=== PATIENT | female | born 1950 | race Caucasian/White ===

== ENCOUNTER 2021-09-06 11:07 | Day surgery (SDC) | payer MEDICARE, MEDICAID ==
[~2021-09-06] VITALS: Ht 154.9 cm; Wt 77.1 kg
[~2021-09-06 11:07] MED LIST: ASPI81TA52 PO; ATOR40TA72 PO; LINE600T14 PO; METO-384 PO
[2021-09-06] MEDS ORDERED: ceFAZolin 2gm in dextrose, iso 50 ML IV ONE (11:35)
[2021-09-06] MEDS ORDERED: normal saline 1000ml 1,000 ML IV PRN (11:35)
[2021-09-06] MEDS ORDERED: ceFAZolin inj. 2,000 MG in normal saline soln 50 ML IV ONE (11:35)
[2021-09-06 11:43] VITALS: BP 169/70
[2021-09-06] MEDS ORDERED: LIDOcaine 1%/PF 5ML 10 MG/ML VIAL ONE (12:01)
[2021-09-06] MEDS ORDERED: iohexol 300 MG/1 ML 50ml polymer ONE (12:01)
[2021-09-06] MEDS ORDERED: hydrALAZINE 20mg/ml inj. IV ONE (12:48)
[2021-09-06 13:17] VITALS: BP 166/71
[2021-09-06 13:33] VITALS: BP 165/74
[2021-09-06 13:45] VITALS: BP 159/72
[2021-09-06 14:00] VITALS: BP 155/70
== END 2021-09-06 14:30 | disposition home or self-care (01) ==
LOC: SSTAY O 11:07
PROVIDERS: ATTEND Radiology Diagnostic Radiology
DX: Z43.6 Encounter for attention to other artificial openings of urinary tract (principal); I10 Essential (primary) hypertension; Z86.73 Personal history of transient ischemic attack (TIA), and cerebral infarction without residual deficits; Z88.1 Allergy status to other antibiotic agents; Z79.899 Other long term (current) drug therapy; Z79.82 Long term (current) use of aspirin; Z88.2 Allergy status to sulfonamides
CPT/HCPCS: 50435; 82948; C1729; C1769; J0360; Q9967; 50387

== ENCOUNTER 2022-02-22 16:49 | Inpatient (IN) | payer MEDICARE, MEDICAID ==
[~2022-02-22] VITALS: Ht 154.9 cm; Wt 77.3 kg
[~2022-02-22 16:49] MED LIST changes: -LINE600T14 PO
[2022-02-22 17:30] LABS: BASOPHILS # (AUTO) 0.1 X10'3 (0-0.2); BASOPHILS % (AUTO) 0.9 % (0-1); EOSINOPHILS # (AUTO) 0.2 X10'3 (0-0.9); EOSINOPHILS % (AUTO) 1.7 % (0-6); HEMATOCRIT 40.5 % (35.0-45.0); HEMOGLOBIN 13.3 g/dl (12.0-16.0); LYMPHOCYTES # (AUTO) 2.2 X10'3 (1.1-4.8); LYMPHOCYTES % (AUTO) 22.9 % (21-51); MEAN CORPUSCULAR HEMOGLOBIN 28.2 PG (27.0-31.0); MEAN CORPUSCULAR HGB CONC 32.8 g/dL (33.0-36.5); MEAN CORPUSCULAR VOLUME 86.1 FL (78-98); MEAN PLATELET VOLUME 7.3 FL (7.4-10.4); MONOCYTES # (AUTO) 0.6 X10'3 (0-0.9); MONOCYTES % (AUTO) 6.8 % (2-12); NEUTROPHILS # (AUTO) 6.4 X10'3 (1.8-7.7); NEUTROPHILS % (AUTO) 67.7 % (42-75); PLATELET COUNT 237 X10'3 (140-440); RED BLOOD COUNT 4.71 X10'6 (4.20-5.60); RED CELL DISTRIBUTION WIDTH 16.2 % (11.5-14.5); WHITE BLOOD COUNT 9.4 X10'3 (4.5-11.0)
[2022-02-22 17:38] LABS: APTT 27 SECONDS (22-32)
[2022-02-22 17:39] LABS: ALANINE AMINOTRANSFERASE 25 U/L (12-78); ALBUMIN 3.1 G/DL (3.4-5.0); ALBUMIN/GLOBULIN RATIO 0.7 (1.1-1.5); ALKALINE PHOSPHATASE 93 IU/L (46-116); ANION GAP 12 (8-16); ASPARTATE AMINO TRANSFERASE 16 U/L (10-37); BILIRUBIN,TOTAL 0.3 MG/DL (0.1-1.0); BLOOD UREA NITROGEN 22 MG/DL (7-18); BUN/CREATININE RATIO 13.6 (6.6-38.0); CALCIUM 9.6 MG/DL (8.5-10.1); CHLORIDE 101 MMOL/L (99-107); CREATININE 1.62 MG/DL (0.40-0.90); GLUCOSE 235 MG/DL (70-104); SODIUM 136 MMOL/L (135-145); TOTAL CARBON DIOXIDE 23.5 MMOL/L (24-32); TOTAL PROTEIN 7.5 G/DL (6.4-8.2); eGFR 31 ML/MIN
--- NOTE | 2022-02-22 19:01 | NUR ---
Pt pink, alert, no acute/resp distress. PIV site c/d/i s complication. Bed in lowest position, wheels locked, family at bedside.
[2022-02-22] MEDS ORDERED: iohexol 350MG/ML 100ml bottle IV ONE (19:29)
--- NOTE | 2022-02-22 20:30 | NUR ---
Pt pink, alert, no acute/resp distress. Bed in lowest position, wheels locked, rail 2/2 up, call kaye in reach. Pt laying right side, able to reposition self PRN. Urinal at bedside. Family at bedside.
[2022-02-22] MEDS ORDERED: vancomycin/NS 1 GM ADD-VANTAGE 250 ML IV ONE (20:40)
[2022-02-22] MEDS ORDERED: potassium Cl 20 mEq SR tablet PO PRN ×2 (20:40)
[2022-02-22] MEDS ORDERED: magnesium 4gm in 100ml NS 100 ML IV PRN (20:40)
[2022-02-22] MEDS ORDERED: cefTRIAXone 1g/NS 100ml IVPB 100 ML IV ONE (20:40)
[2022-02-22] MEDS ORDERED: acetaminophen 325mg tablet PO PRN (20:40)
[2022-02-22] MEDS ORDERED: potassium CL 10mEq/100ml bag 100 ML IV PRN (20:40)
[2022-02-22] MEDS ORDERED: magnesium 2GM in 50ml NS 50 ML IV PRN (20:40)
[2022-02-22] MEDS ORDERED: mag hydrox/Alum hydrox/simeth 30ml oral suspension PO PRN (20:40)
[2022-02-22] MEDS ORDERED: ondansetron/PF 4mg/2ml inj IV PRN (20:40)
[2022-02-22] MEDS ORDERED: VANCOMYCIN 750MG IV in NS 250 ML IV SCH (21:00)
[2022-02-22] MEDS ORDERED: INSU100I31 SQ (21:09)
[2022-02-22] MEDS ORDERED: MESSAGE TO PHARMACY PO ONE (21:50)
[2022-02-22] MEDS ORDERED: DEXTROSE 15 GM of carb/4 tabs (each vial/BOTTLE has 4 tablets) PO PRN ×2 (21:50)
[2022-02-22] MEDS ORDERED: dextrose 50%-water 50ml dispensing syringe IV PRN ×2 (21:50)
[2022-02-22] MEDS ORDERED: glucagon, human recombinant 1mg kit SUBCUT PRN (21:50)
[2022-02-22] MEDS ORDERED: clopidogrel 300mg tablet PO ONE (22:05)
[2022-02-22 22:07] LABS: HEMOGLOBIN A1C 8.5 % (4.5-6.2)
[2022-02-22] MEDS: clopidogrel 75mg tablet PO SCH (22:14)
[2022-02-22] MEDS: VANCOMYCIN 750MG IV in NS 250 ML IV SCH (22:20)
--- NOTE | 2022-02-22 23:19 | NUR ---
Pt pink, alert, no acute/resp distress. Bed in lowest position, wheels locked, rail 2/2 up, call kaye in reach. Pt laying right side, able to reposition self PRN. Family at bedside.
--- NOTE | 2022-02-23 | NUR ---
Gilberto Leggett pt has been NPO do not cover blood sugar of 164 with any insulin. Charge Марина SIERRA witnessed.
--- NOTE | 2022-02-23 00:35 | NUR ---
Note jacoby in EDM - 02/23/22 at 0047 by [email or web address] Pt pink, alert, no acute/resp distress. Bed in lowest position, wheels locked, rail 2/2 up, call kaye in reach. Pt laying right side, able to reposition self PRN. PIV site c/d/i s complication or adverse. Pt provided with blankets and pillow. Family at bedside.
--- NOTE | 2022-02-23 01:58 | NUR ---
Pt pink, alert, no acute/resp distress. Bed in lowest position, wheels locked, rail 2/2 up, call kaye in reach. Pt laying left side, able to reposition self PRN.
--- NOTE | 2022-02-23 02:51 | NUR ---
Pt pink, alert, no acute/resp distress. Bed in lowest position, wheels locked, rail 2/2 up, call kaye in reach. Pt laying right side, able to reposition self PRN. Covid test collected, labeled and walked to lab. Pt marci well remained pink.
--- NOTE | 2022-02-23 03:20 | NUR ---
Pt pink, no acute/resp distress. Pt marci well remained pink. Bed in lowest position, wheels locked, rail 2/2 up, call kaye in reach. Pt laying right side, able to reposition self PRN.
--- NOTE | 2022-02-23 05:00 | NUR ---
Pt pink, no acute/resp distress. Pt marci well remained pink. Bed in lowest position, wheels locked, rail 2/2 up, call kaye in reach. Pt laying right side, able to reposition self PRN. Pt refuses to leave leads, pulse ox and nibp in place.
--- NOTE | 2022-02-23 06:01 | NUR ---
Pt pink, alert, no acute/resp distress. Bed in lowest position, wheels locked, rail 2/2 up, call kaye in reach. Pt laying left side, able to reposition self PRN. RT at bedside, neb in progress. PIV site c/d/i s complication or adverse. Hand off report to dayshift RN
--- NOTE | 2022-02-23 06:30 | NUR ---
Report from MARIELA Hoang.
--- NOTE | 2022-02-23 07:00 | NUR ---
Checked on pt. Pt had voided all over the bed and diaper was saturated with UA. Pt was aware that she was wet. A&Ox4. Occasional expressive aphasia noted. 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 Left arm contracted unless pt told to relax it and then she will. Pt cleaned up, gown and bed linens changed. IV infiltrated when checked. Will place new IV. Labs drawn, BG 160. Speech path at bedside to evaluate swallowing ability.
[2022-02-23 07:37] LABS: BASOPHILS % (AUTO) 0.5 % (0-1); EOSINOPHILS # (AUTO) 0.2 X10'3 (0-0.9); EOSINOPHILS % (AUTO) 2.2 % (0-6); HEMATOCRIT 43.9 % (35.0-45.0); HEMOGLOBIN 14.2 g/dl (12.0-16.0); LYMPHOCYTES # (AUTO) 1.9 X10'3 (1.1-4.8); LYMPHOCYTES % (AUTO) 18.7 % (21-51); MEAN CORPUSCULAR HEMOGLOBIN 28.5 PG (27.0-31.0); MEAN CORPUSCULAR HGB CONC 32.4 g/dL (33.0-36.5); MEAN CORPUSCULAR VOLUME 88.1 FL (78-98); MEAN PLATELET VOLUME 7.4 FL (7.4-10.4); MONOCYTES # (AUTO) 0.9 X10'3 (0-0.9); MONOCYTES % (AUTO) 8.7 % (2-12); NEUTROPHILS % (AUTO) 69.9 % (42-75); PLATELET COUNT 194 X10'3 (140-440); RED BLOOD COUNT 4.98 X10'6 (4.20-5.60)
--- NOTE | 2022-02-23 07:39 | NUR ---
Pt noted to be confused when asked questions by Speech pathology. Left sided facial droop noted when chewing. Not oriented to month. Speech path to order mince moist diet since pt doesn't have bottom denture.
[2022-02-23] MEDS: docusate sod 100mg capsule PO SCH ×2 (08:00→21:10)
[2022-02-23] MEDS: K and/or MAG REPLACEMENT MC SCH ×2 (08:00→21:11)
[2022-02-23] MEDS ORDERED: atorvastatin 20mg tablet PO SCH (08:00)
[2022-02-23] MEDS ORDERED: clopidogrel 75mg tablet PO SCH (08:00)
--- NOTE | 2022-02-23 08:00 | NUR ---
Rocephin not available in the [facility]. Called pharmacy and they said they will deliver it.
[2022-02-23 08:04] LABS: ALANINE AMINOTRANSFERASE 20 U/L (12-78); ALBUMIN 3.1 G/DL (3.4-5.0); ALBUMIN/GLOBULIN RATIO 0.7 (1.1-1.5); ALKALINE PHOSPHATASE 97 IU/L (46-116); ANION GAP 14 (8-16); ASPARTATE AMINO TRANSFERASE 21 U/L (10-37); BILIRUBIN,TOTAL 0.3 MG/DL (0.1-1.0); BLOOD UREA NITROGEN 18 MG/DL (7-18); BUN/CREATININE RATIO 12.2 (6.6-38.0); CALCIUM 9.5 MG/DL (8.5-10.1); CHLORIDE 102 MMOL/L (99-107); CHOL/HDL RATIO 9.5 (0.00-4.99); CHOLESTEROL 229 MG/DL (0-200); CREATININE 1.47 MG/DL (0.40-0.90); GLUCOSE 151 MG/DL (70-104); HDL CHOLESTEROL 24 MG/DL (35-60); LDL CHOLESTEROL 152 MG/DL (50-100); MAGNESIUM 1.9 MG/DL (1.5-2.4); POTASSIUM 4.3 MMOL/L (3.5-5.1); SODIUM 138 MMOL/L (135-145); TOTAL CARBON DIOXIDE 22.3 MMOL/L (24-32); TOTAL PROTEIN 7.7 G/DL (6.4-8.2); TRIGLYCERIDES 343 MG/DL (20-135); eGFR 35 ML/MIN
--- NOTE | 2022-02-23 08:37 | NUR ---
PAGER ID: [phone] MESSAGE: Sanjana [phone] 4015A BP 200/84, HR 75. Would you like to order an antihypertensive for her. Thank you.
[2022-02-23 10:00] VITALS: BP 205/89
[2022-02-23] MEDS: clopidogrel 75mg tablet PO SCH (10:00)
[2022-02-23] MEDS: aspirin 81mg, enteric-coated 1 TAB TABLET.DR PO SCH (10:00)
--- NOTE | 2022-02-23 13:19 | NUR ---
PAGER ID: [phone] MESSAGE: Sanjana [id number] 5162G daughter is caregiver and POA. States she is med compliant. Aphasia and speech not baseline. Uses walker and wheelchair. Swallow ok. Daughter wonders if she could have an UTI.
[2022-02-23] MEDS: cefTRIAXone 1g/NS 100ml IVPB 100 ML IV SCH (13:55)
[2022-02-23 14:00] VITALS: BP 143/54
[2022-02-23 14:13] LABS: CLARITY,URINE CLEAR (Clear); COLOR,URINE YELLOW (Yellow); GLUCOSE, URINE NEGATIVE (Neg); KETONES,URINE NEGATIVE (Neg); LEUKOCYTE ESTERASE ,URINE NEGATIVE (Neg); NITRITES, URINE NEGATIVE (Neg); OCCULT BLOOD,URINE NEGATIVE (Neg); PH,URINE 6.5 (4.8-8.0); PROTEIN,URINE NEGATIVE (Neg); UROBILINOGEN,URINE 0.2 E.U/dL (0.2-1.0)
[2022-02-23 14:16] LABS: UA COLLECTION TYPE NON-SPECIFIED
[2022-02-23 18:00] VITALS: BP 161/94
--- NOTE | 2022-02-23 18:42 | NUR ---
Problems reprioritized. Patient report given, questions answered & plan of care reviewed with MARIELA Farrell.
[2022-02-23] MEDS: VANCOMYCIN 750MG IV in NS 250 ML IV SCH (20:59)
[2022-02-23] MEDS: insulin glargine (Lantus) pen - multi-dose SQ SCH (21:01)
[2022-02-23 21:47] VITALS: BP 178/97
[2022-02-24 02:00] VITALS: BP 160/81
[2022-02-24 06:00] VITALS: BP 140/78
--- NOTE | 2022-02-24 06:43 | NUR ---
Patient in room ORTHO 4015. I have received report from MARIELA Farrell and had the opportunity to ask questions and assume patient care.
[2022-02-24] MEDS: docusate sod 100mg capsule PO SCH ×2 (08:00→20:00)
[2022-02-24] MEDS: K and/or MAG REPLACEMENT MC SCH ×2 (08:00→20:00)
[2022-02-24 08:05] LABS: BASOPHILS % (AUTO) 0.4 % (0-1); EOSINOPHILS # (AUTO) 0.2 X10'3 (0-0.9); EOSINOPHILS % (AUTO) 2.6 % (0-6); HEMATOCRIT 41.5 % (35.0-45.0); HEMOGLOBIN 13.7 g/dl (12.0-16.0); LYMPHOCYTES # (AUTO) 1.6 X10'3 (1.1-4.8); LYMPHOCYTES % (AUTO) 17.2 % (21-51); MEAN CORPUSCULAR HEMOGLOBIN 28.9 PG (27.0-31.0); MEAN CORPUSCULAR VOLUME 87.5 FL (78-98); MEAN PLATELET VOLUME 7.8 FL (7.4-10.4); MONOCYTES # (AUTO) 0.6 X10'3 (0-0.9); MONOCYTES % (AUTO) 6.4 % (2-12); NEUTROPHILS # (AUTO) 6.7 X10'3 (1.8-7.7); NEUTROPHILS % (AUTO) 73.4 % (42-75); PLATELET COUNT 214 X10'3 (140-440); RED BLOOD COUNT 4.75 X10'6 (4.20-5.60); RED CELL DISTRIBUTION WIDTH 16.1 % (11.5-14.5); WHITE BLOOD COUNT 9.2 X10'3 (4.5-11.0)
[2022-02-24] MEDS: insulin Lispro (HumaLOG) vial - multi-dose SQ SCH (08:35)
[2022-02-24] MEDS: atorvastatin 20mg tablet PO SCH (08:36)
[2022-02-24] MEDS: clopidogrel 75mg tablet PO SCH (08:36)
[2022-02-24] MEDS: aspirin 81mg, enteric-coated 1 TAB TABLET.DR PO SCH (08:36)
[2022-02-24] MEDS: metoprolol succinate 25mg (24-HOUR) SR. Tablet PO SCH (08:37)
[2022-02-24] MEDS: cefTRIAXone 1g/NS 100ml IVPB 100 ML IV SCH (08:37)
[2022-02-24 08:42] LABS: ALANINE AMINOTRANSFERASE 26 U/L (12-78); ALBUMIN 3.1 G/DL (3.4-5.0); ALBUMIN/GLOBULIN RATIO 0.7 (1.1-1.5); ALKALINE PHOSPHATASE 97 IU/L (46-116); ANION GAP 13 (8-16); ASPARTATE AMINO TRANSFERASE 20 U/L (10-37); BILIRUBIN,TOTAL 0.4 MG/DL (0.1-1.0); BLOOD UREA NITROGEN 24 MG/DL (7-18); BUN/CREATININE RATIO 13.5 (6.6-38.0); CALCIUM 9.3 MG/DL (8.5-10.1); CHLORIDE 103 MMOL/L (99-107); CREATININE 1.78 MG/DL (0.40-0.90); GLUCOSE 178 MG/DL (70-104); POTASSIUM 4.2 MMOL/L (3.5-5.1); SODIUM 138 MMOL/L (135-145); TOTAL CARBON DIOXIDE 22.1 MMOL/L (24-32); TOTAL PROTEIN 7.5 G/DL (6.4-8.2); eGFR 28 ML/MIN
--- NOTE | 2022-02-24 09:00 | NUR ---
Patient has expressive affasia and is confused at times. Her daughter Samantha Mars is her POA and her number is [phone].
[2022-02-24 10:00] VITALS: BP 155/75
--- NOTE | 2022-02-24 11:24 | NUR ---
DM consult: Pt with DM, current A1c is 8.5%, with long acting insulin on home med list per EMR. Noted patient with altered lipid panel with TG 343, CHOL 229, LDL 152, and HDL 24. Pt admit for probable acute CVA, currently A/O x 2 with expressive aphasia per EMR. Pt would benefit from DM and heart healthy nutrition therapy educations once more stable. Pt s/p BSS with ST recs minced and moist food with thin liquids. Will continue to follow. Addendum: 02/24/22 at [address] Amended: Links added.
[2022-02-24 14:00] VITALS: BP 136/64
--- NOTE | 2022-02-24 15:00 | NUR ---
Faxed Medical Release for records of brain coils from [facility] in [place]. No records obtained so far and unable to reach that department by phone when attempted.
--- NOTE | 2022-02-24 17:36 | NUR ---
Patel faxed to [facility] consent signed by the patient to request release of records relating the cail used in 2015 for her brain aneurysm. Have not heard back from [facility].
[2022-02-24 18:00] VITALS: BP 138/73
--- NOTE | 2022-02-24 18:58 | NUR ---
Problems reprioritized. Patient report given, questions answered & plan of care reviewed with MARIELA Sinclair.
--- NOTE | 2022-02-24 19:23 | NUR ---
Patient in room ORTHO 4015. I have received report from TREVOR SIERRA and had the opportunity to ask questions and assume patient care.
[2022-02-24] MEDS: normal saline 1000ml 1,000 ML IV SCH (19:30)
[2022-02-24] MEDS: insulin glargine (Lantus) pen - multi-dose SQ SCH (20:55)
[2022-02-24 22:00] VITALS: BP 136/80
[2022-02-24] MEDS: VANCOMYCIN 750MG IV in NS 250 ML IV SCH (22:39)
[2022-02-25 02:00] VITALS: BP 137/64
[2022-02-25 06:00] VITALS: BP 116/66
--- NOTE | 2022-02-25 06:30 | NUR ---
Problems reprioritized. Patient report given, questions answered & plan of care reviewed with KAREN SIERRA.
[2022-02-25 07:17] LABS: BASOPHILS # (AUTO) 0.1 X10'3 (0-0.2); BASOPHILS % (AUTO) 0.8 % (0-1); EOSINOPHILS # (AUTO) 0.2 X10'3 (0-0.9); EOSINOPHILS % (AUTO) 3.4 % (0-6); HEMATOCRIT 38.2 % (35.0-45.0); HEMOGLOBIN 12.6 g/dl (12.0-16.0); LYMPHOCYTES # (AUTO) 1.4 X10'3 (1.1-4.8); LYMPHOCYTES % (AUTO) 20.8 % (21-51); MEAN CORPUSCULAR HEMOGLOBIN 28.9 PG (27.0-31.0); MEAN CORPUSCULAR VOLUME 87.5 FL (78-98); MEAN PLATELET VOLUME 7.5 FL (7.4-10.4); MONOCYTES # (AUTO) 0.6 X10'3 (0-0.9); MONOCYTES % (AUTO) 8.8 % (2-12); NEUTROPHILS # (AUTO) 4.6 X10'3 (1.8-7.7); NEUTROPHILS % (AUTO) 66.2 % (42-75); PLATELET COUNT 186 X10'3 (140-440); RED BLOOD COUNT 4.36 X10'6 (4.20-5.60); RED CELL DISTRIBUTION WIDTH 16.1 % (11.5-14.5); WHITE BLOOD COUNT 6.9 X10'3 (4.5-11.0)
[2022-02-25 07:38] LABS: ALANINE AMINOTRANSFERASE 20 U/L (12-78); ALBUMIN 2.7 G/DL (3.4-5.0); ALBUMIN/GLOBULIN RATIO 0.7 (1.1-1.5); ALKALINE PHOSPHATASE 81 IU/L (46-116); ANION GAP 11 (8-16); ASPARTATE AMINO TRANSFERASE 19 U/L (10-37); BILIRUBIN,TOTAL 0.5 MG/DL (0.1-1.0); BLOOD UREA NITROGEN 27 MG/DL (7-18); BUN/CREATININE RATIO 14.3 (6.6-38.0); CALCIUM 8.9 MG/DL (8.5-10.1); CHLORIDE 105 MMOL/L (99-107); CREATININE 1.89 MG/DL (0.40-0.90); GLUCOSE 169 MG/DL (70-104); MAGNESIUM 2.1 MG/DL (1.5-2.4); POTASSIUM 4.2 MMOL/L (3.5-5.1); SODIUM 139 MMOL/L (135-145); TOTAL PROTEIN 6.8 G/DL (6.4-8.2); eGFR 26 ML/MIN
[2022-02-25] MEDS: docusate sod 100mg capsule PO SCH ×2 (08:00→20:00)
[2022-02-25] MEDS: insulin Lispro (HumaLOG) vial - multi-dose SQ SCH ×3 (08:49→19:14)
[2022-02-25] MEDS: cefTRIAXone 1g/NS 100ml IVPB 100 ML IV SCH (08:53)
[2022-02-25] MEDS: normal saline 1000ml 1,000 ML IV SCH (08:53)
[2022-02-25] MEDS: metoprolol succinate 25mg (24-HOUR) SR. Tablet PO SCH (08:54)
[2022-02-25] MEDS: clopidogrel 75mg tablet PO SCH (08:54)
[2022-02-25] MEDS: atorvastatin 20mg tablet PO SCH (08:55)
[2022-02-25] MEDS: aspirin 81mg, enteric-coated 1 TAB TABLET.DR PO SCH (08:55)
[2022-02-25 10:00] VITALS: BP 145/71
--- NOTE | 2022-02-25 10:45 | NUR ---
Received phone call from patient's daughter who gave me another fax number for [facility] Medical Records dept. Faxed Medical Release form to obtain records again to the fax number that was obtained. Fax record completed but still no records obtained. aware.
[2022-02-25] MEDS: K and/or MAG REPLACEMENT MC SCH ×2 (10:53→20:00)
[2022-02-25 18:00] VITALS: BP 159/66
--- NOTE | 2022-02-25 18:05 | NUR ---
Received phone call from Medical Records leather production worker in [place], [place] for [facility] in [place] who was only able to fax over pt demographics, advance directive and labs and said that was all that they were able to access. Agent said to call Medical Records dept. on Sunday to find out if able to obtain any other reports. notified of attempts to receive reports of coils for MRI compatibilty as pt's daughter unable to provide any legal documents of coil procedures.
[2022-02-25] MEDS: insulin glargine (Lantus) pen - multi-dose SQ SCH (21:17)
[2022-02-25] MEDS ORDERED: VANCOMYCIN LEVEL IV ONE (21:30)
[2022-02-25 22:00] VITALS: BP 144/76
[2022-02-26] MEDS: normal saline 1000ml 1,000 ML IV SCH ×3 (01:14→21:30)
[2022-02-26] MEDS: VANCOMYCIN 750MG IV in NS 250 ML IV SCH (01:14)
[2022-02-26 06:00] VITALS: BP 189/73
[2022-02-26 06:00] LABS: BASOPHILS # (AUTO) 0.1 X10'3 (0-0.2); BASOPHILS % (AUTO) 0.9 % (0-1); EOSINOPHILS # (AUTO) 0.2 X10'3 (0-0.9); EOSINOPHILS % (AUTO) 3.5 % (0-6); HEMATOCRIT 36.7 % (35.0-45.0); LYMPHOCYTES # (AUTO) 1.5 X10'3 (1.1-4.8); MEAN CORPUSCULAR HEMOGLOBIN 28.6 PG (27.0-31.0); MEAN CORPUSCULAR HGB CONC 32.8 g/dL (33.0-36.5); MEAN CORPUSCULAR VOLUME 87.3 FL (78-98); MEAN PLATELET VOLUME 7.9 FL (7.4-10.4); MONOCYTES # (AUTO) 0.6 X10'3 (0-0.9); MONOCYTES % (AUTO) 9.5 % (2-12); NEUTROPHILS # (AUTO) 3.6 X10'3 (1.8-7.7); NEUTROPHILS % (AUTO) 60.1 % (42-75); PLATELET COUNT 183 X10'3 (140-440); RED BLOOD COUNT 4.21 X10'6 (4.20-5.60); RED CELL DISTRIBUTION WIDTH 16.3 % (11.5-14.5)
[2022-02-26 06:12] LABS: ALANINE AMINOTRANSFERASE 25 U/L (12-78); ALBUMIN 2.8 G/DL (3.4-5.0); ALBUMIN/GLOBULIN RATIO 0.8 (1.1-1.5); ALKALINE PHOSPHATASE 81 IU/L (46-116); ANION GAP 6 (8-16); ASPARTATE AMINO TRANSFERASE 22 U/L (10-37); BILIRUBIN,TOTAL 0.4 MG/DL (0.1-1.0); BLOOD UREA NITROGEN 25 MG/DL (7-18); BUN/CREATININE RATIO 14.1 (6.6-38.0); CALCIUM 8.9 MG/DL (8.5-10.1); CHLORIDE 108 MMOL/L (99-107); CREATININE 1.77 MG/DL (0.40-0.90); GLUCOSE 146 MG/DL (70-104); MAGNESIUM 1.7 MG/DL (1.5-2.4); POTASSIUM 4.1 MMOL/L (3.5-5.1); SODIUM 138 MMOL/L (135-145); TOTAL CARBON DIOXIDE 23.7 MMOL/L (24-32); TOTAL PROTEIN 6.4 G/DL (6.4-8.2); eGFR 28 ML/MIN
--- NOTE | 2022-02-26 07:27 | NUR ---
Problems reprioritized. Patient report given, questions answered & plan of care reviewed with RUBEN SIERRA.
[2022-02-26] MEDS: K and/or MAG REPLACEMENT MC SCH ×2 (08:00→20:00)
[2022-02-26] MEDS: atorvastatin 20mg tablet PO SCH (09:21)
[2022-02-26] MEDS: cefTRIAXone 1g/NS 100ml IVPB 100 ML IV SCH (09:21)
[2022-02-26] MEDS: metoprolol succinate 25mg (24-HOUR) SR. Tablet PO SCH (09:22)
[2022-02-26] MEDS: aspirin 81mg, enteric-coated 1 TAB TABLET.DR PO SCH (09:22)
[2022-02-26] MEDS: clopidogrel 75mg tablet PO SCH (09:22)
[2022-02-26] MEDS: docusate sod 100mg capsule PO SCH ×2 (09:26→20:00)
--- NOTE | 2022-02-26 11:33 | NUR ---
Initial: Pt admitted w/ probably acute CVA, hyperlipidemia, encephalopathy and MEGHA w/ CKD per EMR. A1c 8.5, provided pt w/ written and verbal Diabetes and Heart Healthy education w/ RD contact info. Pt currently on Carb controlled/MM5 diet w/ moderate PO intake, avg 55% x 7 meals partially meeting needs. Pt could benefit from Glucerna BID for additional calories/protein. No BM documented, receiving routine colace. Will continue to monitor. Recs: 1. Continue Carb controlled/MM5 diet, consider adding Heart Healthy if PO improves 2. Glucerna BIDBD; pending MD verification 3. Routine bowel care 4. Scaled wts Addendum: 02/26/22 at [address] Amended: Links added.
[2022-02-26] MEDS: insulin Lispro (HumaLOG) vial - multi-dose SQ SCH ×2 (13:17→20:00)
[2022-02-26 14:00] VITALS: BP 158/60
[2022-02-26] MEDS ORDERED: NUT.TX.GLUC.INTOLER,LAC-FR,SOY (GLUCERNA) 237 ML PO SCH (17:30)
[2022-02-26 18:00] VITALS: BP 194/80
--- NOTE | 2022-02-26 18:31 | NUR ---
Report to February RN
[2022-02-26] MEDS: insulin glargine (Lantus) pen - multi-dose SQ SCH (21:58)
[2022-02-26 22:00] VITALS: BP 178/81
[2022-02-26] MEDS ORDERED: vancomycin/NS 1 GM ADD-VANTAGE 250 ML IV SCH (22:00)
[2022-02-27 01:30] VITALS: BP 172/76
[2022-02-27 06:00] VITALS: BP 151/67
[2022-02-27 06:02] LABS: BASOPHILS # (AUTO) 0.1 X10'3 (0-0.2); EOSINOPHILS # (AUTO) 0.3 X10'3 (0-0.9); EOSINOPHILS % (AUTO) 4.6 % (0-6); HEMATOCRIT 40.5 % (35.0-45.0); HEMOGLOBIN 13.3 g/dl (12.0-16.0); LYMPHOCYTES # (AUTO) 1.5 X10'3 (1.1-4.8); LYMPHOCYTES % (AUTO) 26.1 % (21-51); MEAN CORPUSCULAR HEMOGLOBIN 28.5 PG (27.0-31.0); MEAN CORPUSCULAR HGB CONC 32.9 g/dL (33.0-36.5); MEAN CORPUSCULAR VOLUME 86.7 FL (78-98); MEAN PLATELET VOLUME 7.7 FL (7.4-10.4); MONOCYTES # (AUTO) 0.6 X10'3 (0-0.9); MONOCYTES % (AUTO) 9.7 % (2-12); NEUTROPHILS # (AUTO) 3.5 X10'3 (1.8-7.7); NEUTROPHILS % (AUTO) 58.6 % (42-75); PLATELET COUNT 178 X10'3 (140-440); RED BLOOD COUNT 4.67 X10'6 (4.20-5.60); RED CELL DISTRIBUTION WIDTH 16.3 % (11.5-14.5); WHITE BLOOD COUNT 5.9 X10'3 (4.5-11.0)
[2022-02-27 06:17] LABS: ALANINE AMINOTRANSFERASE 26 U/L (12-78); ALBUMIN 2.9 G/DL (3.4-5.0); ALBUMIN/GLOBULIN RATIO 0.7 (1.1-1.5); ALKALINE PHOSPHATASE 89 IU/L (46-116); ANION GAP 11 (8-16); ASPARTATE AMINO TRANSFERASE 17 U/L (10-37); BILIRUBIN,TOTAL 0.5 MG/DL (0.1-1.0); BLOOD UREA NITROGEN 23 MG/DL (7-18); BUN/CREATININE RATIO 13.9 (6.6-38.0); CALCIUM 9.1 MG/DL (8.5-10.1); CHLORIDE 105 MMOL/L (99-107); CREATININE 1.66 MG/DL (0.40-0.90); GLUCOSE 133 MG/DL (70-104); MAGNESIUM 1.6 MG/DL (1.5-2.4); POTASSIUM 3.8 MMOL/L (3.5-5.1); SODIUM 140 MMOL/L (135-145); TOTAL CARBON DIOXIDE 24.2 MMOL/L (24-32); TOTAL PROTEIN 7.2 G/DL (6.4-8.2); eGFR 30 ML/MIN
[2022-02-27] MEDS: K and/or MAG REPLACEMENT MC SCH (08:00)
[2022-02-27] MEDS: docusate sod 100mg capsule PO SCH (08:00)
[2022-02-27] MEDS: aspirin 81mg, enteric-coated 1 TAB TABLET.DR PO SCH (08:33)
[2022-02-27] MEDS: atorvastatin 20mg tablet PO SCH (08:34)
[2022-02-27] MEDS: clopidogrel 75mg tablet PO SCH (08:35)
[2022-02-27] MEDS: metoprolol succinate 25mg (24-HOUR) SR. Tablet PO SCH (08:35)
[2022-02-27] MEDS: insulin Lispro (HumaLOG) vial - multi-dose SQ SCH (08:40)
[2022-02-27 10:00] VITALS: BP 162/108
[2022-02-27] MEDS ORDERED: CLOP75TA34 PO (12:33)
[2022-02-27] MEDS ORDERED: ATOR80TA PO (12:33)
--- NOTE | 2022-02-27 13:51 | NUR ---
Attempt to call daughter Xiao, unable to leave voicemail.
[2022-03-01] MEDS ORDERED: VANCOMYCIN LEVEL IV ONE (21:30)
== END 2022-02-27 15:30 | disposition home or self-care (01) | DRG 64 ==
LOC: ER 16:50 → ED HOLD 20:48 → ORTHO 4S 02-23 08:15
PROVIDERS: ADMIT Family Medicine; ATTEND Family Medicine
PROC: B3251ZZ Computerized Tomography (CT Scan) of Bilateral Common Carotid Arteries using Low Osmolar Contrast (ICD-10-PCS; principal; 2022-02-22)
PROC: B32G1ZZ Computerized Tomography (CT Scan) of Bilateral Vertebral Arteries using Low Osmolar Contrast (ICD-10-PCS; 2022-02-22)
PROC: B32R1ZZ Computerized Tomography (CT Scan) of Intracranial Arteries using Low Osmolar Contrast (ICD-10-PCS; 2022-02-22)
PROC: B3281ZZ Computerized Tomography (CT Scan) of Bilateral Internal Carotid Arteries using Low Osmolar Contrast (ICD-10-PCS; 2022-02-22)
DX: I63.9 Cerebral infarction, unspecified (principal); G93.41 Metabolic encephalopathy; N17.9 Acute kidney failure, unspecified; E78.00 Pure hypercholesterolemia, unspecified; E78.5 Hyperlipidemia, unspecified; Z66 Do not resuscitate; I71.4 Abdominal aortic aneurysm, without rupture; E11.51 Type 2 diabetes mellitus with diabetic peripheral angiopathy without gangrene; R47.1 Dysarthria and anarthria; Z20.822 Contact with and (suspected) exposure to COVID-19; I12.9 Hypertensive chronic kidney disease with stage 1 through stage 4 chronic kidney disease, or unspecified chronic kidney disease; N18.30 Chronic kidney disease, stage 3 unspecified; Z86.73 Personal history of transient ischemic attack (TIA), and cerebral infarction without residual deficits; I25.2 Old myocardial infarction; Z82.49 Family history of ischemic heart disease and other diseases of the circulatory system; Z87.442 Personal history of urinary calculi; Z95.1 Presence of aortocoronary bypass graft; Z87.891 Personal history of nicotine dependence; Z87.440 Personal history of urinary (tract) infections; Z88.1 Allergy status to other antibiotic agents; Z79.82 Long term (current) use of aspirin; Z79.899 Other long term (current) drug therapy
CPT/HCPCS: 36415; 70450; 70496; 70498; 71045; 80053; 80061; 80202; 81003; 82948; 83036; 83605; 83735; 84484; 85025; 85610; 85730; 87040; 87081; 87635; 92508; 92616; 93005; 93306; 97110; 97116; 97161; 97530; 99285; G0378; J0696; J1815; J3370; J7030; J7050; Q9967

== ENCOUNTER 2024-11-25 14:51 | Emergency (ER) | payer MEDICARE, MEDICAID ==
[~2024-11-25] VITALS: Ht 154.9 cm; Wt 79.5 kg
[~2024-11-25 14:51] MED LIST changes: +ATOR-2 PO; -ATOR40TA72 PO; +INSU100I31 SQ; +LOSA50TA64 PO; +METF-1203 PO; -METO-384 PO; +METO-411 PO; +OMEP20TA23 PO
[2024-11-25 16:27] LABS: BILIRUBIN,URINE NEGATIVE (Neg); COLOR,URINE YELLOW (Yellow); GLUCOSE, URINE 250 mg/dl (Neg); KETONES,URINE NEGATIVE (Neg); LEUKOCYTE ESTERASE ,URINE MODERATE (Neg); NITRITES, URINE NEGATIVE (Neg); OCCULT BLOOD,URINE SMALL (Neg); PROTEIN,URINE TRACE mg/dl (Neg); UROBILINOGEN,URINE 0.2 E.U/dL (0.2-1.0)
[2024-11-25 16:37] LABS: CLARITY,URINE CLOUDY (Clear); UA COLLECTION TYPE NON-SPECIFIED
[2024-11-25 16:38] LABS: WBC,URINE 30-50 /HPF (0-4)
[2024-11-25 16:39] LABS: BACTERIA,URINE 2+ /HPF (Neg); SQUAMOUS EPITHELIAL CELL,UR FEW /LPF (FEW)
[2024-11-25] MEDS: FOSFOMYCIN TROMETHAMINE 3 GM PACKET PO ONE (18:20)
[2024-11-25 18:25] VITALS: BP 182/84; PULSE 82; RESP 16; TEMP 98.5; O2SAT 98
== END 2024-11-25 18:30 | disposition home or self-care (01) ==
LOC: ER 14:52
DX: N39.0 Urinary tract infection, site not specified (principal); E11.9 Type 2 diabetes mellitus without complications; E78.00 Pure hypercholesterolemia, unspecified; I10 Essential (primary) hypertension; J44.9 Chronic obstructive pulmonary disease, unspecified; Z86.73 Personal history of transient ischemic attack (TIA), and cerebral infarction without residual deficits; Z88.1 Allergy status to other antibiotic agents
CPT/HCPCS: 81001; 87077; 87088; 87186; 99283

== ENCOUNTER 2024-12-06 18:24 | Emergency (ER) | payer MEDICARE, MEDICAID ==
[~2024-12-06] VITALS: Ht 154.9 cm; Wt 79.1 kg
[2024-12-06 18:28] VITALS: BP 157/73; PULSE 90; TEMP 98.3; O2SAT 97
[2024-12-06 19:46] VITALS: RESP 16
[2024-12-06] MEDS ORDERED: LEVO250T74 PO (19:52)
[2024-12-06 19:59] LABS: BILIRUBIN,URINE NEGATIVE (Neg); CLARITY,URINE CLEAR (Clear); COLOR,URINE YELLOW (Yellow); GLUCOSE, URINE >=1000 mg/dl (Neg); KETONES,URINE NEGATIVE (Neg); LEUKOCYTE ESTERASE ,URINE SMALL (Neg); NITRITES, URINE NEGATIVE (Neg); OCCULT BLOOD,URINE TRACE-INTACT (Neg); PROTEIN,URINE NEGATIVE (Neg); UROBILINOGEN,URINE 0.2 E.U/dL (0.2-1.0)
[2024-12-06] MEDS: levoFLOXACIN 250mg tablet PO ONE (20:04)
[2024-12-06 20:10] LABS: UA COLLECTION TYPE CLN CATCH MIDSTREAM
[2024-12-06 20:12] LABS: BACTERIA,URINE 4+ /HPF (Neg); SQUAMOUS EPITHELIAL CELL,UR FEW /LPF (FEW); WBC,URINE 50-100 /HPF (0-4)
== END 2024-12-06 20:15 | disposition home or self-care (01) ==
LOC: ER 18:25
DX: N39.0 Urinary tract infection, site not specified (principal); E78.00 Pure hypercholesterolemia, unspecified; I10 Essential (primary) hypertension; J44.9 Chronic obstructive pulmonary disease, unspecified; E11.9 Type 2 diabetes mellitus without complications; Z86.73 Personal history of transient ischemic attack (TIA), and cerebral infarction without residual deficits; Z88.1 Allergy status to other antibiotic agents; Z79.82 Long term (current) use of aspirin; Z79.4 Long term (current) use of insulin; Z79.899 Other long term (current) drug therapy
CPT/HCPCS: 81001; 87077; 87088; 87186; 99284

== ENCOUNTER 2025-03-20 12:11 | Inpatient (IN) | payer MEDICARE, MEDICAID ==
[~2025-03-20] VITALS: Ht 152.4 cm; Wt 85.0 kg
--- NOTE | 2025-03-20 12:16 | Physician Documentation ---
History of Present Illness ~ Stated Complaint: STROKE ALERT Time Seen by MD: 12:13 Primary Medical Doctor: yvette arroyo in [place] HPI 74-year-old female who arrives by EMS from home, reported history of past strokes, who presents with possible stroke symptoms. EMS reports that at around 9:30 a.m. this morning, the patient has stopped talking. She reportedly was dysarthric, had right gaze deviation, and complete paralysis of her left arm and leg. She was not answering most questions, was only speaking in single word answers. Blood glucose not low. On arrival here in the ED, I saw the patient in the hallway on the way to CT scan. She is able to answer some simple questions. She does appear to be able to track her eyes slightly across midline to the left. She is now able to raise her left arm and leg up off the bed but still has some weakness. History is very limited. Per chart review it appears she does have a history of strokes as well as dementia. Medication Reconciliation Allergies: Coded Allergies: tetracycline (Verified Allergy, Intermediate, 12/06/24) ceftriaxone (Verified Allergy, Unknown, 12/06/24) ciprofloxacin (Verified Allergy, Unknown, 12/06/24) levofloxacin (Verified Allergy, Unknown, 03/20/25) Uncoded Allergies: UNKNOWN ANTIBIOTIC (Allergy, Intermediate, DOESN'T REMEMBER NAME OF ABX, BUT IT MADE HER WEAK, 05/31/21) Scheduled Aspirin (Aspirin EC), 1 TAB PO DAILY, (Reported) Atorvastatin Calcium (Atorvastatin Calcium), 1 TAB PO HS, (Reported) Insulin Glargine,Hum.rec.anlog (Basaglar Kwikpen U-100), 14 UNITS SQ HS, (Reported) Losartan Potassium (Losartan Potassium), 1 TAB PO DAILY, (Reported) Metformin HCl (Metformin HCl), 1 TAB PO BID, (Reported) Metoprolol Succinate (Metoprolol Succinate), 1 TAB PO DAILY, (Reported) Omeprazole Magnesium (Prilosec Otc), 1 TAB PO DAILY, (Reported) Rosuvastatin Calcium (Rosuvastatin Calcium), 1 TAB PO DAILY, (Reported) Miscellaneous Medications Semaglutide (Ozempic), (Reported) Past Medical History Past Medical History: CVA/TIA/Stroke, High Cholesterol, Hypertension, COPD, Diabetes Past Surgical History: noncontributory Patient History: FH: myocardial infarction FATHER (NONE), Alcohol Use: None Drug Use: none Lives In: Home Review of Systems Unable to obtain complete ROS: altered mental status Physical Exam General Appearance Initial emergent exam: General: This is an ill-appearing older female on an EMS gurney HEENT: She does appear to have a left-sided facial droop, with dysarthria and right-sided gaze deviation. Visual field testing is limited Heart: Regular rate and rhythm, normal-appearing peripheral perfusion Lungs: normal work of breathing, normal oxygen saturation on room air Neuro: The patient does respond to voice and answer some simple questions, is oriented to self. She has a left-sided facial droop, dysarthria and right gaze deviation. She has left arm and leg weakness but is able to temporarily hold them up off the bed. Sensation seemed diminished on the left. Exam is limited due to her clinical condition. Progress Results/Orders Results/Orders Orders - BINDU LUCIO MD Monitor (03/20/25 12:13) 2 Large Bore Ivs (03/20/25 12:13) Chest,Single View (03/20/25 12:13) Accucheck (03/20/25 12:13) Ct Stroke Alert (03/20/25 12:13) Cta Neck/Head (03/20/25 12:14) [place] Prov.Neuro Consult (03/20/25 12:39) Line Placement(Picc Nurse) (03/20/25 ) Page Hospitalist (03/20/25 13:37) Completed Orders - BINDU LUCIO MD Cbc/Diff (03/20/25 12:13) Electrocardiogram (03/20/25 12:13) Chest,Single View (03/20/25 12:13) Ct Stroke Alert (03/20/25 12:13) BMP (03/20/25 12:13) PTT (03/20/25 12:13) Pt Inr (03/20/25 12:13) Cta Neck/Head (03/20/25 12:14) Iohexol 350mg/Ml 100ml (Omnipaque 350mg/ (03/20/25 12:18) Line Placement(Picc Nurse) (03/20/25 ) Aspirin Suppository (Aspirin Suppository (03/20/25 13:40) Medications Received in ER Medications (Trade) Dose Ordered Sig/Tramaine Route PRN Reason Start Time Stop Time Status Last Admin Dose Admin (aspirin suppository) 300 mg ONCE ONCE RC 03/20/25 13:40 03/20/25 13:41 DC 03/20/25 14:48 300 MG Vital Signs 03/20/25 03/20/25 03/20/25 03/20/25 12:24 12:43 12:57 13:00 Temp 97.6 Pulse 76 78 79 Resp 26 18 21 26 B/P (MAP) 193/95 182/75 179/76 Pulse Ox 96 97 97 O2 Flow Rate 0 03/20/25 03/20/25 03/20/25 13:11 13:27 13:57 Pulse 77 79 77 Resp B/P (MAP) 177/78 169/77 189/78 Pulse Ox 99 98 100 Laboratory Tests Test 03/20/25 12:31 White Blood Count 9.9 Red Blood Count 4.12 L Hemoglobin 12.0 Hematocrit 36.3 Mean Corpuscular Volume 88.1 Mean Corpuscular Hemoglobin 29.1 Mean Corpuscular Hemoglobin Concent 33.1 Red Cell Distribution Width 18.0 H Platelet Count 206 Mean Platelet Volume 7.7 Neutrophils (%) (Auto) 64.9 Lymphocytes (%) (Auto) 22.3 Monocytes (%) (Auto) 10.3 Eosinophils (%) (Auto) 1.7 Basophils (%) (Auto) 0.8 Neutrophils # (Auto) 6.4 Lymphocytes # (Auto) 2.2 Monocytes # (Auto) 1.0 H Eosinophils # (Auto) 0.2 Basophils # (Auto) 0.1 CBC Comment Prothrombin Time 10.6 INR International Normalized Ratio 1.0 Activated Partial Thromboplast Time 24 Coagulation Comments Sodium Level 138 Potassium Level 4.6 Chloride Level 104 Carbon Dioxide Level 28.3 Anion Gap 6 L Blood Urea Nitrogen 24 H Creatinine 2.39 H Estimated GFR/1.73 m2 20 BUN/Creatinine Ratio 10.0 Glucose Level 124 H Calcium Level 9.6 Albumin 2.7 L Chemistry Comments Consults/PCP Consults/PCP : Additional Comment Consult: Stroke Neurology emergently consulted for evaluation. NIH 13. They do not recommend TNK. They do recommend transfer for thrombectomy if she is a candidate. 1:30 p.m.: Consult: I spoke to Dr. Lama, the ER physician at [facility]. He reviewed the patient's chart and provided further information about her past stroke history. She had a recent admission with the M1 M2 stenosis with left- sided weakness and dysphagia, which was treated with medical management. Consult: We then spoke to Dr. Horn, neuro interventionalist to discuss if there were any intervention such as thrombectomy or stenting. After discussing the c ase, he recommends against any neuro intervention at this time. If anything she may be a candidate for stenting in 7 days, but no acute intervention were indication for transfer for perfusion studies at this time. Medical management with dual antiplatelet therapy. Consult: I spoke to the internal medicine service here at our hospital, for admission in the hospital Medical Decision Making Additional info obtained from: old records Findings Her last ER visit was in December. It states that she was alert and oriented x1, but had no focal extremity weakness Additional Information Differential includes stroke, TIA, intracranial hemorrhage, underlying infection, seizure, encephalopathy Assessment The patient presents as a stroke alert. On exam she does appear to have symptoms of a significant stroke including left-sided deficits and renae-neglect. She was taken for emergent brain imaging. This does show findings concerning for an acute stroke and possibly large vessel occlusion. Stroke Neurology was emergently consulted as above. I did speak to the neuro interventionalist at [facility] regarding possibility of thrombectomy or other intervention, but she is not a candidate at this time. See discussions above. She will be admitted here to the hospital for medical management. Departure Impression: Primary Impression: Cerebrovascular accident Referrals: NO PRIMARY CARE PROVIDER (PCP) Critical Care Note Critical Care Note Critical Care Note The very real possibility of a deterioration of this patient's condition required the highest level of my preparedness for sudden, emergent intervention. I provided critical care services, which included medication orders, frequent reevaluations of the patient's condition and response to treatment, ordering and reviewing test results, and discussing the case with various consultants. Excludes time spent performing separately billable procedures. The critical care time associated with the care of the patient was 65 minutes in the management of an acute stroke and altered mental status with high risk of neurologic deterioration Signature Scribe Signature: na Attestation: BINDU Gray MD March 20, 2025 12:16
[2025-03-20] MEDS ORDERED: iohexol 350MG/ML 100ml bottle IV ONE (12:18)
--- NOTE | 2025-03-20 12:36 | RADIOLOGY REPORT ---
EXAM: CT CT STROKE ALERT HISTORY: Stroke Alert COMPARISON: None TECHNIQUE: Axial images were obtained and reformatted in coronal and sagittal planes. All CT scans at this medical facility are performed using dose modulation techniques as appropriate t o a performed exam including the following: Automated exposure control was utilized; adjustment of th e MA and/or KV according to patient size; and use of iterative reconstruction technique. CT Dose: CTDI volume is 62 mGy. Dose-length product is 1165 mGy*cm FINDINGS: Supratentorial Region: Loss of strickland-white matter differentiation in the right parietal and temporal lobes. No intracranial hemorrhage is noted. There is no midline shift. Confluent white matter hypoatt enuating foci are noted bilaterally, which typically reflect chronic microvascular ischemic changes. Posterior Fossa: No acute abnormality. Brainstem: Unremarkable. Sellar/Suprasellar Region: Unremarkable. Ventricles, Cisterns, Sulci: Age-appropriate. Orbits: Unremarkable. Paranasal Sinuses: Unremarkable. Mastoid Air Cells: Unremarkable. Vasculature: Intracranial arterial calcified plaque formation noted. Bones/Soft Tissues: No acute abnormality. Other: None. IMPRESSION: 1. Acute appearing right MCA territorial infarct. No midline shift or intracranial hemorrhage. 2. Old bilateral infarcts and extensive chronic microvascular ischemic changes. A left paramedian sup rasellar aneurysm clip noted. Critical Result: Stroke Alert Findings discussed with , at 03/20/2025 12:28 PM, and acknowledged receipt and understanding of the f indings. ..
[2025-03-20 12:46] LABS: BASOPHILS # (AUTO) 0.1 X10'3 (0-0.2); BASOPHILS % (AUTO) 0.8 % (0-1); EOSINOPHILS # (AUTO) 0.2 X10'3 (0-0.9); EOSINOPHILS % (AUTO) 1.7 % (0-6); HEMATOCRIT 36.3 % (35.0-45.0); LYMPHOCYTES # (AUTO) 2.2 X10'3 (1.1-4.8); LYMPHOCYTES % (AUTO) 22.3 % (21-51); MEAN CORPUSCULAR HEMOGLOBIN 29.1 PG (27.0-31.0); MEAN CORPUSCULAR HGB CONC 33.1 g/dL (33.0-36.5); MEAN CORPUSCULAR VOLUME 88.1 FL (78-98); MEAN PLATELET VOLUME 7.7 FL (7.4-10.4); MONOCYTES % (AUTO) 10.3 % (2-12); NEUTROPHILS # (AUTO) 6.4 X10'3 (1.8-7.7); NEUTROPHILS % (AUTO) 64.9 % (42-75); PLATELET COUNT 206 X10'3 (140-440); RED BLOOD COUNT 4.12 X10'6 (4.20-5.60); WHITE BLOOD COUNT 9.9 X10'3 (4.5-11.0)
--- NOTE | 2025-03-20 12:48 | ELECTROCARDIOGRAPH REPORT ---
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 Nadeem Maxwell Measurements Intervals [place] Rate: 76 P: 51 OH: 176 QRS: 21 QRSD: 119 T: -9 QT: 393 QTc: 442 Interpretive Statements Sinus rhythm Nonspecific intraventricular conduction delay Abnormal inferior Q waves Baseline wander in lead(s) II,aVR Electronically Signed On 03-25-2025 21:46:[address] Nadeem Maxwell Please click the below link to view image of tracing.
--- NOTE | 2025-03-20 12:48 | RADIOLOGY REPORT ---
EXAM: DI CHEST,SINGLE VIEW HISTORY: Stroke Alert COMPARISON: CHEST,SINGLE VIEW on DOS: 10/06/22, CHEST,SINGLE VIEW on DOS: 02/22/22, CHEST,SINGLE VIEW o n DOS: 05/31/21 TECHNIQUE: Portable upright AP view of the chest was performed. FINDINGS: No pneumothorax, consolidative infiltrates, or pulmonary edema. The heart is borderline enlarged. The aortic arch is calcific. IMPRESSION: No acute intrathoracic process.
[2025-03-20 12:51] LABS: ALBUMIN 2.7 G/DL (3.4-5.0); ANION GAP 6 (8-16); BLOOD UREA NITROGEN 24 MG/DL (7-18); CALCIUM 9.6 MG/DL (8.5-10.1); CHLORIDE 104 MMOL/L (99-107); CREATININE 2.39 MG/DL (0.40-0.90); GLUCOSE 124 MG/DL (70-104); POTASSIUM 4.6 MMOL/L (3.5-5.1); SODIUM 138 MMOL/L (135-145); TOTAL CARBON DIOXIDE 28.3 MMOL/L (24-32); eCRCL 15 ML/MIN; eGFR 20 ML/MIN
[2025-03-20 12:54] LABS: APTT 24 SECONDS (22-32); PROTHROMBIN TIME 10.6 SECONDS (9.0-12.0)
--- NOTE | 2025-03-20 13:01 | RADIOLOGY REPORT ---
INDICATION: Acute stroke, left-sided weakness, dysarthria COMPARISON: None TECHNIQUE: CTA head with intravenous contrast. CTA neck with intravenous contrast. 3D image postproce ssing was performed on a dedicated workstation and images were used for interpretation and reporting. Radiation Dose Information: CT Dose: CTDI volume is 30 mGy. Dose-length product is 510 mGy*cm CONTRAST: Type of contrast: Omni 350 Contrast injected: 100 ml FINDINGS: CTA head: Diffuse calcified atherosclerotic plaque involving the bilateral cavernous carotid arteries without h igh-grade stenosis. Paucity of right M2 branches suggests occlusion. 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 No definite flow in the aneurysm sac is seen. Left A2 segment is atretic. Vertebrobasilar system is diminutive and diseased with multifocal stenoses. Do minant bilateral posterior communicating arteries appear patent. The early parenchymal enhancement is grossly unremarkable. The visualized intracranial venous structures are grossly unremarkable. Diffus e hypodensity in both cerebral hemispheres in the right cerebellum. CTA neck: The visualized thoracic aortic arch and proximal great vessels demonstrate diffuse calcified and soft atherosclerotic plaque. Eccentric plaque in the mid left common carotid artery resulting in a [id number], proximally 50 % stenosis. No hemodynamically significant stenosis in the left internal carotid artery. Eccentric plaque in the right carotid bulb with occlusion of the origin of the right external carotid artery. Right internal carotid artery is patent without hemodynamically significant stenosis. Bilateral vertebral arteries are diminutive but patent. Emphysematous changes in the visualized lung apices. The surrounding soft tissues and osseous structu res are otherwise unremarkable. IMPRESSION: 1. Advanced atherosclerotic disease. 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 Bilateral inter nal carotid arteries are patent without hemodynamically significant stenosis. Lgaq-ed-[id number] steno sis of the mid left common carotid artery. Diminutive bilateral vertebral arteries. 2. Paucity of right M2 branches suggests occlusion. Consider further evaluation with MRA of the brain . 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 No definite flow in the aneurysm sac. Vertebrobasilar system is diminutive with multifocal stenoses. 3. Smoking-related lung disease. Diffuse hypodensity in both cerebral hemispheres in the right cerebe llum likely related to old infarcts. Acute infarct is not excluded. Recommend further evaluation wit h MRI of the brain. All CT scans at this medical facility are performed using dose modulation techniques as appropriate t o a performed exam including the following: Automated exposure control was utilized; adjustment of th e MA and/or KV according to patient size; and use of iterative reconstruction technique. HS:Y
--- NOTE | 2025-03-20 13:36 | BL[facility] NE[facility] CONSULT REPORT ---
[facility] Procedure Note [facility] Procedure Note Consult [facility] Note # Demographics Consult Type: Acute Stroke Level 1 (0-4.5 hrs) Patient Location: Emergency Room First Name: ROSA ELENA Last Name: DAMIAN Date of : 1950 Age: 74 Gender: Female Facility: [facility] Time of Initial Page (): 03/20/2025 12:24 Time of Return Call (): 03/20/2025 12:24 # HPI History: [id number] (not sure) Patient is coming to ER for inability to speak, unable to move left arm or leg. EMS noticed these symptoms when they evaluated her she had these symptoms and she is improving when was evaluated in the ER H/O stroke- (not sure about deficits; no h/o on blood thinner) # Scores Time of exam and NIHSS (): 03/20/2025 12:46 Level of Consciousness 1a: [1] = Not alert; but arousable by minor stim LOC Questions 1b: [1] = Answers one correctly LOC Commands 1c: [0] = Performs both tasks correctly Best Gaze 2: [1] = Partial gaze palsy Visual 3: [2] = Complete hemianopia Facial Palsy 4: [2] = Partial paralysis Motor Arm Left 5a: [2] = Some effort against gravity Motor Arm Right 5b: [0] = No drift Motor Leg Left 6a: [2] = Some effort against gravity Motor Leg Right 6b: [0] = No drift Limb Ataxia 7: [0] = Absent Sensory 8: [0] = Normal Best Language 9: [0] = No aphasia Dysarthria 10: [1] = Bxym-ki-fzabtcok dysarthria Extinction and Inattention 11: [0] = No abnormality NIHSS Total: 12 # Data Head CT: - no bleed - preliminarily reviewed by me, please refer to radiology read for official reading # Assessment Impression: - Ischemic Stroke (Acute) Patient BP is 182/75; not sure about LKN, not sure about meds. CTA head and neck shows right M2 occlusion # Plan Thrombolytic/Intervention: IA Intervention IA Decision Making: - Discussed with ED provider. - Unable to discuss the potential for intra-arterial therapy with patient due to medical condition. No family available. - Based on available knowledge of the patients condition, imaging results, and potential for disability without intervention, I recommend the team consider proceeding with IA therapy. Time IA Intervention Recommended ([facility]): 03/20/2025 12:53 Blood Pressure Management: - nicardipine - labetalol Target Blood Pressure: - SBP < 180 - SBP > 140 Labs: - comprehensive metabolic panel - CBC - hemoglobin A1c - lipid panel Imaging: (urgency: routine): - MRI Brain without contrast Diagnostic Test: - echo without bubble study Therapy/Evaluation: - NPO until swallow evaluation - PT/OT evaluation Medication: - Plavix 300 mg PO x1 now, then 75 mg daily x 21 days + asa 81mg x 21 days, followed by monotherapy thereafter If PO not available- [place] ASA 325 mg once DVT Prophylaxis: - SCD Thrombolytic Administration Recommendations: IA Management Recommendations: - HOB flat as tolerated until thrombectomy - use IV fluids and/or vasopressors to keep SBP at stated goal - urgent consult to Neuro Interventional Radiology for potential thrombectomy - Transfer to facility that is IA capable for consideration of mechanical thrombectomy Other: - If patient has any neurological deterioration please call me back immediately - I have discussed my recommendations with the referring provider - telemetry monitoring - neurology referral as outpatient - permissive hypertension - LDL < 70 Disposition: transfer to IA capable facility # Logistics Attestation of consult completion: The patient is located at: [facility]. Facility staff participated in the visit. I performed this telemedicine visit from my offsite office utilizing interactive 2 way audio and visual telecommunication technology. Total time spent in telemedicine encounter: I spent 10 minutes reviewing clinical data and/or imaging, obtaining history, examining the patient, communicating with the onsite care team, and in preparation of this report. # Demographics First Name: ROSA ELENA Last Name: LAURIEEVENS Facility: [facility] Neuro Consult Order placed for: Yes CODY BLANCO MD March 20, 2025 13:36
[2025-03-20] MEDS ORDERED: SEMA0.258 (13:56)
[2025-03-20] MEDS ORDERED: ROSU40TA89 PO (13:56)
[2025-03-20] MEDS ORDERED: acetaminophen 325mg tablet PO PRN (14:00)
[2025-03-20] MEDS ORDERED: potassium Cl 20 mEq SR tablet PO PRN ×2 (14:00)
[2025-03-20] MEDS ORDERED: morphine 2 MG/ML inj. syringe IV PRN ×2 (14:00)
[2025-03-20] MEDS ORDERED: potassium Cl 40MEQ/1/2NS 520ml 520 ML IV PRN (14:00)
[2025-03-20] MEDS ORDERED: ondansetron/PF 4mg/2ml inj IV PRN (14:00)
[2025-03-20] MEDS ORDERED: magnesium sulf-water 4G/100mL 100 ML IV PRN (14:00)
[2025-03-20] MEDS ORDERED: magnesium hydroxide 30ml (MOM) UD suspension PO PRN (14:00)
[2025-03-20] MEDS ORDERED: mag hydrox/Alum hydrox/simeth 30ml oral suspension PO PRN (14:00)
[2025-03-20] MEDS ORDERED: magnesium sulf-water 2g/50mL 50 ML IV PRN (14:00)
[2025-03-20] MEDS ORDERED: magnesium Cl slow-release 64mg tablet PO PRN (14:00)
[2025-03-20] MEDS: normal saline 1000ml 1,000 ML IV SCH (14:48)
[2025-03-20] MEDS: aspirin 300mg supp.rect RC ONE (14:48)
--- NOTE | 2025-03-20 14:54 | HISTORY AND PHYSICAL-Residence ---
History & Physical Providers to CC Resident Creating Document: TEVIN PAT CC: SARAI WASHBURN MD ~ History of Present Illness Primary Medical Doctor: Dr Kem anderson [facility] in [place] Reason for Admit\Complaint: Weakness History of Present Illness Patient is a 74-year-old female with history of type 2 diabetes, recent CVA, hypertension, hyperlipidemia, GERD, CAD and PAD who was brought to the ED due to slurred speech and left-sided weakness. Patient is significantly forgetful and obtaining history is challenging. She initially was not able to recall why she was not hospital, but she then reported that she believes she was having stroke symptoms this morning, she believes her left side was weaker than before and her speech was more slurred. She also remembers throwing up her breakfast. Per ED physician report, patient initially was going to be transferred for thrombolysis intervention due to CTA findings, however, interventionalist at [facility] recommended medical management. Patient had stroke about one month ago and was treated at [facility]. I contacted her daughter Samantha, who was able to provide a more clear history. She reports that patient had a stroke one month ago and had some left-sided and slurred speech as a sequela for which she has been getting home physical therapy. She states that patient is forgetful at baseline which is a sequela from her stroke in 2015. She states that 2 days ago she noticed a slight worsened speech and left-sided weakness as well as elevated blood pressure and fever, which she hoped was just a TIA or a UTI. This morning, patient presented inability to walk with worsened slurred speech, reason why she decided to bring her to the ED. Her PCP is Dr. Brownlee, and her bilingual recruiter is Dr. Gonzales. Allergies: Coded Allergies: tetracycline (Verified Allergy, Intermediate, 12/06/24) ceftriaxone (Verified Allergy, Unknown, 12/06/24) ciprofloxacin (Verified Allergy, Unknown, 12/06/24) levofloxacin (Verified Allergy, Unknown, 03/20/25) Uncoded Allergies: UNKNOWN ANTIBIOTIC (Allergy, Intermediate, DOESN'T REMEMBER NAME OF ABX, BUT IT MADE HER WEAK, 05/31/21) Home Medications Home Medications Active Reported Ozempic (Semaglutide) 0.25 Mg/0.368 Ml Pen.injctr Rosuvastatin Calcium 40 Mg Tablet 1 Tab PO DAILY Prilosec Otc (Omeprazole Magnesium) 20 Mg Tablet.dr 1 Tab PO DAILY Atorvastatin Calcium 80 Mg Tablet 1 Tab PO HS Metformin HCl 500 Mg Tablet 1 Tab PO BID Metoprolol Succinate 100 Mg Tab.sr.24h 1 Tab PO DAILY Losartan Potassium 50 Mg Tablet 1 Tab PO DAILY Basaglar Kwikpen U-100 (Insulin Glargine,Hum.rec.anlog) 100 Unit/1 Ml Insuln.pen 14 Units SQ HS Aspirin EC (Aspirin) 81 Mg Tablet.dr 1 Tab PO DAILY 30 Days Past Medical History Past Medical History Multiple CVA, 2015, 2018, and last month. Patient underwent stenting in 2014, and carotid endarterectomy in 2018 Hypertension Hyperlipidemia GERD CAD s/p PCI PAD s/p femoral stent Type 2 diabetes Past Surgical History Surgical History Comment Three C sections Carotid endarterectomy Peripheral vascular stenting Family History Family History: FH: myocardial infarction FATHER (NONE), Past Social History Smoking: Quit greater than 1 year (Quit 7 years ago) Alcohol Use: None Drug Use: None Lives with: Family (Daughter) Lives In: Home ROS ROS Difficult to obtain due to patient's forgetfulness and confusion Exam Vitals: Vital Signs Date Time Temp Pulse Resp B/P (MAP) Pulse Ox O2 Delivery O2 Flow Rate FiO2 03/20/25 13:57 77 25 189/78 100 03/20/25 12:24 97.6 0 General: General: Generally confused, but occasionally able to remember recent facts, occasionally grew grasses to her teen years, this is baseline per daughter HEENT: Deviated oral commissure towards the right, No pallor present, no icterus, moist mucous membranes Neck: No masses and tenderness Resp: Unlabored. Lungs clear to auscultation bilaterally. Heart: Regular Rate and rhythm, normal S1 and S2 without murmur, rub or gallop Abdomen: Soft and non tender no organomegaly, no guarding and rigidity, bowel sounds present Neuro: Significant drifting of left upper and lower extremities, follows some commands, central facial paralysis. Sensation is preserved Extremities: No cyanosis,clubbing or edema Skin: Warm and Dry. No lesions Diagnostic Data Last Recorded Lab Results: 03/20/25 1231 03/20/25 1231 Diagnostic Data: Laboratory Tests Test 03/20/25 12:31 Prothrombin Time 10.6 SECONDS (9.0-12.0) INR International Normalized Ratio 1.0 INR Activated Partial Thromboplast Time 24 SECONDS (22-32) Coagulation Comments Advance Care Planning Advanced Care plannin - 30 Minutes Additional Plan Patient is a 74-year-old female with history of type 2 diabetes, recent CVA, hypertension, hyperlipidemia, GERD, CAD and PAD who was brought to the ED due to slurred speech and left-sided weakness. Admitted for evaluation and management of CVA. Stroke alert, NIHSS 12 History of ischemic stroke in 2014, [address] head shows Acute appearing right MCA territorial infarct. No midline shift or intracranial hemorrhage. Old bilateral infarcts and extensive chronic microvascular ischemic changes. A left paramedian suprasellar aneurysm clip noted. CTA shows Advanced atherosclerotic disease. 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 Bilateral internal carotid arteries are patent without hemodynamically significant stenosis. Xexi-rq-rikasihu stenosis of the mid left common carotid artery. Diminutive bilateral vertebral arteries. Paucity of right M2 branches suggests occlusion. 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 No definite flow in the aneurysm sac. Vertebrobasilar system is diminutive with multifocal stenoses. Diffuse hypodensity in both cerebral hemispheres in the right cerebellum likely related to old infarcts. Acute infarct is not excluded. Patient was given loading dose of aspirin 300 mg rectally Other recommendations by Neurology as follow: Blood Pressure Management: nicardipine, labetalol Target Blood Pressure: SBP < 180, SBP > 140 Labs: comprehensive metabolic panel, CBC, hemoglobin A1c, lipid panel Imaging: (urgency: routine): MRI Brain without contrast, echo without bubble study DVT Prophylaxis: SCD Medication: Plavix 300 mg PO x1 now, then 75 mg daily x 21 days + asa 81mg x 21 days, followed by monotherapy thereafter. If PO not available- [place] ASA 325 mg once Initially patient was going to be transferred for invasive thrombolysis. Intervention list at [facility] recommended medical management. Neurologist in agreement per ED physician Hypertension Hyperlipidemia CAD s/p PCI PAD s/p femoral stent Goal BP as above We will hold metoprolol and losartan for now Continue rosuvastatin Rest as above GERD Continue Prilosec Type 2 diabetes Last A1c 7.2 per daughter Will repeat Start home Lantus 14 units, lispro 2 units, low-dose supplemental Hold home Ozempic Code Status: DNR DVT prophylaxis: SCDs Analgesia/sedation: Morphine Nutrition: NPO until swallow eval PT: Ordered Prognosis: Guarded Disposition: Admit to ortho/neuro. Continue medical management Tevin Mathew MD Internal Medicine Resident PGY-1 Date of Service: March 20, 2025 Billing Provider: SARAI WASHBURN MD Common Visit Codes: [id number] INP/OBS CARE (HIGH) Secondary Visit Codes: [id number] CARE PLAN 30 MINUTES TEVIN PAT March 20, 2025 14:54 SARAI WASHBURN MD March 25, 2025 17:19
[2025-03-20] MEDS: clopidogrel 75mg tablet PO SCH (15:45)
[2025-03-20] MEDS: PERFLUTREN PROTEIN-A MICROSPHR (Optison) 0.22 MG/ML 3ML VIAL IV ONE (16:25)
[2025-03-20 17:30] VITALS: BP 109/84; PULSE 79; RESP 13; TEMP 97.4; O2SAT 98
[2025-03-20 20:00] VITALS: RESP 13; O2SAT 98
[2025-03-20] MEDS: K and/or MAG REPLACEMENT MC SCH (20:00)
[2025-03-20] MEDS ORDERED: heparin, porcine 5000 units/ml vial SQ SCH (20:00)
[2025-03-20] MEDS: docusate sod 100mg capsule PO SCH (20:00)
[2025-03-20] MEDS: atorvastatin 20mg tablet PO SCH (20:32)
[2025-03-20 22:00] VITALS: BP 207/97; PULSE 74; RESP 16; TEMP 96.3; O2SAT 90
[2025-03-20 23:35] VITALS: BP 165/67; PULSE 84
[2025-03-21] VITALS (9 sets, daily range): BP systolic 143–207; BP diastolic 78–95; PULSE 85–101; RESP 14–24; TEMP 96.3–98.2; O2SAT 93–98
[2025-03-21 01:53] LABS: BILIRUBIN,URINE NEGATIVE (Neg); CLARITY,URINE SLIGHTLY CLOUDY (Clear); COLOR,URINE YELLOW (Yellow); GLUCOSE, URINE NEGATIVE (Neg); KETONES,URINE NEGATIVE (Neg); LEUKOCYTE ESTERASE ,URINE MODERATE (Neg); NITRITES, URINE POSITIVE (Neg); OCCULT BLOOD,URINE SMALL (Neg); PROTEIN,URINE 30 mg/dl (Neg); UROBILINOGEN,URINE 0.2 E.U/dL (0.2-1.0)
[2025-03-21 01:59] LABS: UA COLLECTION TYPE NON-SPECIFIED
[2025-03-21 02:02] LABS: BACTERIA,URINE 2+ /HPF (Neg); RBC,URINE NONE SEEN /HPF (0-2); WBC,URINE 30-50 /HPF (0-4)
[2025-03-21 02:03] LABS: SQUAMOUS EPITHELIAL CELL,UR FEW /LPF (FEW); WBC CLUMPS,URINE FEW /HPF (NEGATIVE)
[2025-03-21] MEDS ORDERED: dextrose 5%-1/4 normal saline 1,000 ML IV SCH (03:10)
[2025-03-21] MEDS: dextrose 5%-1/2 normal saline 1,000 ML IV SCH (03:22)
[2025-03-21 05:57] LABS: BASOPHILS # (AUTO) 0.1 X10'3 (0-0.2); BASOPHILS % (AUTO) 0.6 % (0-1); EOSINOPHILS # (AUTO) 0.3 X10'3 (0-0.9); EOSINOPHILS % (AUTO) 2.8 % (0-6); HEMATOCRIT 33.2 % (35.0-45.0); HEMOGLOBIN 11.2 g/dl (12.0-16.0); LYMPHOCYTES # (AUTO) 1.4 X10'3 (1.1-4.8); LYMPHOCYTES % (AUTO) 15.5 % (21-51); MEAN CORPUSCULAR HEMOGLOBIN 29.7 PG (27.0-31.0); MEAN CORPUSCULAR HGB CONC 33.8 g/dL (33.0-36.5); MEAN CORPUSCULAR VOLUME 87.8 FL (78-98); MONOCYTES # (AUTO) 0.7 X10'3 (0-0.9); MONOCYTES % (AUTO) 8.3 % (2-12); NEUTROPHILS # (AUTO) 6.5 X10'3 (1.8-7.7); NEUTROPHILS % (AUTO) 72.8 % (42-75); PLATELET COUNT 193 X10'3 (140-440); RED BLOOD COUNT 3.78 X10'6 (4.20-5.60); RED CELL DISTRIBUTION WIDTH 17.8 % (11.5-14.5)
[2025-03-21 06:24] LABS: ALANINE AMINOTRANSFERASE 15 U/L (12-78); ALBUMIN 2.3 G/DL (3.4-5.0); ALBUMIN/GLOBULIN RATIO 0.5 (1.1-1.5); ALKALINE PHOSPHATASE 107 IU/L (46-116); ANION GAP 10 (8-16); ASPARTATE AMINO TRANSFERASE 25 U/L (10-37); BILIRUBIN,TOTAL 0.4 MG/DL (0.1-1.0); BLOOD UREA NITROGEN 21 MG/DL (7-18); BUN/CREATININE RATIO 9.5 (10.0-20.0); CHLORIDE 106 MMOL/L (99-107); CREATININE 2.21 MG/DL (0.40-0.90); GLUCOSE 94 MG/DL (70-104); MAGNESIUM 1.8 MG/DL (1.5-2.4); SODIUM 141 MMOL/L (135-145); TOTAL CARBON DIOXIDE 25.4 MMOL/L (24-32); TOTAL PROTEIN 6.6 G/DL (6.4-8.2); eCRCL 16 ML/MIN; eGFR 22 ML/MIN
[2025-03-21] MEDS: pantoprazole 40mg Tablet.DR PO SCH (07:30)
[2025-03-21] MEDS: aspirin 81mg, enteric-coated 1 TAB TABLET.DR PO SCH (08:00)
[2025-03-21] MEDS ORDERED: CefTRIAXone/D5W-Rocephin 1gm 50 ML IV SCH (08:00)
--- NOTE | 2025-03-21 09:48 | PROGRESS NOTE- Residence ---
Progress Note - Resident Providers to CC Resident Creating Document: TEVIN PAT CC: SARAI WASHBURN MD ~ Antibiotic Timeout Antibiotic Ordered?: Yes Subjective Patient was examined at bedside this morning. She was sitting in recliner. She seems slightly more alert today, still has slow and slurred speech. Objective Vital Signs Date Time Temp Pulse Resp B/P (MAP) Pulse Ox O2 Delivery O2 Flow Rate FiO2 03/21/25 06:29 96.3 85 16 182/91 (121) 93 Room Air 03/20/25 17:13 0 Result Diagram: 03/21/2544403/21/25444 General: Generally confused, but occasionally able to remember recent facts, occasionally grew grasses to her teen years, this is baseline per daughter HEENT: Deviated oral commissure towards the right, No pallor present, no icterus, moist mucous membranes Neck: No masses and tenderness Resp: Unlabored. Lungs clear to auscultation bilaterally. Heart: Regular Rate and rhythm, normal S1 and S2 without murmur, rub or gallop Abdomen: Soft and non tender no organomegaly, no guarding and rigidity, bowel sounds present Neuro: Significant drifting of left upper and lower extremities, follows some commands, central facial paralysis. Sensation is preserved Extremities: No cyanosis,clubbing or edema Skin: Warm and Dry. No lesions Coagulation Studies Laboratory Tests Test 03/20/25 12:31 Prothrombin Time 10.6 SECONDS (9.0-12.0) INR International Normalized Ratio 1.0 INR Activated Partial Thromboplast Time 24 SECONDS (22-32) Coagulation Comments Assessment Assessment Patient is a 74-year-old female with history of type 2 diabetes, recent CVA, hypertension, hyperlipidemia, GERD, CAD and PAD who was brought to the ED due to slurred speech and left-sided weakness. Admitted for evaluation and management of CVA. Plan Plan Acute stroke, right MCA territorial infarct History of ischemic stroke in 2014, 2017 and 01/2025 History of brain aneurysm, s/p coiling History of carotid artery stenosis s/p carotid endarterectomy in 2018 Right external carotid artery occlusion CT head shows Acute appearing right MCA territorial infarct. No midline shift or intracranial hemorrhage. Old bilateral infarcts and extensive chronic microvascular ischemic changes. A left paramedian suprasellar aneurysm clip noted. CTA shows Advanced atherosclerotic disease. 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 Bilateral internal carotid arteries are patent without hemodynamically significant stenosis. Ibxt-fv-kwqzgect stenosis of the mid left common carotid artery. Diminutive bilateral vertebral arteries. Paucity of right M2 branches suggests occlusion. 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 No definite flow in the aneurysm sac. Vertebrobasilar system is diminutive with multifocal stenoses. Diffuse hypodensity in both cerebral hemispheres in the right cerebellum likely related to old infarcts. Acute infarct is not excluded. Patient was given loading dose of aspirin 300 mg rectally Other recommendations by Neurology as follow: Blood Pressure Management: nicardipine, labetalol Target Blood Pressure: SBP < 180, SBP > 140 Labs: comprehensive metabolic panel, CBC, hemoglobin A1c, lipid panel Imaging: (urgency: routine): MRI Brain without contrast, echo without bubble study DVT Prophylaxis: SCD Medication: Plavix 300 mg PO x1 now, then 75 mg daily x 21 days + asa 81mg x 21 days, followed by monotherapy thereafter. If PO not available- [place] ASA 325 mg once Initially patient was going to be transferred for invasive thrombolysis. Intervention list at [facility] recommended medical management. Neurologist in agreement per ED physician 03/21/2025: Swallow evaluation performed this morning, recommended minced/moist nectar thick diet with no straws Pending MRI. Awaiting records from [facility] to make sure coils are MRI compatible Hypertension Hyperlipidemia CAD s/p PCI PAD s/p femoral stent Goal BP as above We will hold metoprolol and losartan for now Continue rosuvastatin Rest as above GERD Continue Prilosec Type 2 diabetes Last A1c 7.2 per daughter Will repeat Start home Lantus 14 units, lispro 2 units, low-dose supplemental Hold home Ozempic Code Status: DNR DVT prophylaxis: SCDs Analgesia/sedation: Morphine Nutrition: minced/moist nectar thick diet with no straws PT: Ordered Prognosis: Guarded Disposition: Continue care in ortho/neuro. Continue medical management Tevin Mathew MD Internal Medicine Resident PGY-1 Date of Service: March 21, 2025 Billing Provider: SARAI WASHBURN MD Common Visit Codes: [id number] INP/OBS CARE(HIGH) TEVIN PAT March 21, 2025 09:48 SARAI WASHBURN MD March 25, 2025 17:20
[2025-03-21] MEDS: sulfmethoxaz/trimethoprim inj 10 ML in dextrose 5%-water 240 ML IV SCH (10:01)
[2025-03-21] MEDS: labetalol 20mg/4ml (5mg/ml) syringe IV PRN (17:25)
--- NOTE | 2025-03-21 23:31 | CARDIOLOGY REPORT ---
APPROVED REPORT EXAM: Comprehensive 2D, Doppler, and color-flow Echocardiogram with saline study. Patient Location: [address] Blood Pressure: 189/95 mmHg Heart Rate: 98 bpm Rhythm: Sinus Rhythm Indications CVA/TIA Hx of CVA due to Right Carotid Occlusion Hx of Hypertension Diabetes Mellitus COPD Marketing Director: None Previous echo: 02/23/2022 [facility] EF:60% 2D Dimensions RVDd 2.9 cm LA Diam4.2 cm IVC 14.40 mmCO 2.9 L/min M-Mode Dimensions RVDd 2.02 (2.1-3.2cm) Left Atrium(MM) 3.65 (2.5-4.0cm) IVSd 1.33 (0.7-1.1cm) LVDd 3.98 (4.0-5.6cm) Aortic Root 2.79 (2.2-3.7cm) PWd 1.36 (0.7-1.1cm) Aortic Cusp Exc 1.83 (1.5-2.0cm) IVSs 1.22 cm LVDs 3.14 (2.0-3.8cm) FS (%) 21 % PWs 1.50 cm ESV(Teich) 39.1 ml LVEF(%) 45 (>50%) Aortic Valve AoV Peak Lauro. 132.2 cm/s AoV VTI 25.0 cm AO Peak GR. 7.0 mmHg AO Mean GR. 4 mmHg LVOT VTI 20.71 cm LVOT Peak Lauro. 113.7 cm/s ASHISH(VTI)/BSA 2.16 cm2/m2 ASHISH (VTI) 2.16 cm2 Mitral Valve MV E Velocity 48.2 cm/s MV Peak Gr. 8 mmHg MV DECEL TIME 124 ms MV A Velocity 98.9 cm/s MV Mean Gr. 4 mmHg E/A Ratio 0.5 MV RZwh753.8 cm/sMV VMean89.6 cm/s MVA VTI1.75 cm2MV VTI30.8 cm Tricuspid Valve TR P. Velocity 198 cm/s RAP ESTIMATE 10 mmHg TR Peak Gr. 16 mmHg RVSP 26 mmHg LEFT VENTRICLE Normal LV size and wall thickness. Overall systolic function is mildly reduced. Overall LVEF is 45-50 %. RIGHT VENTRICLE RV is grossly normal size and function. Estimated PA systolic pressure is 41 mmHg. ATRIA The left atrium size is normal. Saline study was performed with 3 IV injections of 10 ccs of agitated normal saline at rest and with valsalva. Saline study is nondiagnostic due to poor image quality. AORTIC VALVE Trileaflet AV appears sclerotic without stenosis or insufficiency. MITRAL VALVE Mild MV annular calcification and thickening. No stenosis with trace regurgitation. TRICUSPID VALVE TV appears structurally normal with trace regurgitation. PULMONIC VALVE Grossly normal PV without stenosis, physiologic insufficiency. GREAT VESSELS The aortic root is normal in size. IVC is normal in size and collapses greater than 50% with inspirat ion. PERICARDIUM Grossly normal pericardium. No pericardial effusion seen. Other Information Study Quality: Fair Conclusion Normal LV size and wall thickness. Overall systolic function is mildly reduced. Overall LVEF is 45-50 %. RV is grossly normal size and function. Estimated PA systolic pressure is 41 mmHg. The left atrium size is normal. Saline study was performed with 3 IV injections of 10 ccs of agitated normal saline at rest and with valsalva. Saline study is nondiagnostic due to poor image quality. Trileaflet AV appears sclerotic without stenosis or insufficiency. Mild MV annular calcification and thickening. No stenosis with trace regurgitation. TV appears structurally normal with trace regurgitation. Grossly normal pericardium. No pericardial effusion seen.
[2025-03-22] VITALS (15 sets, daily range): BP systolic 139–197; BP diastolic 62–83; PULSE 91–95; RESP 14–25; TEMP 97.5–98.2; O2SAT 86–98
[2025-03-22] MEDS: sulfmethoxaz/trimethoprim inj 10 ML in dextrose 5%-water 240 ML IV SCH (08:56)
[2025-03-22 14:31] LABS: BASOPHILS % (AUTO) 0.6 % (0-1); EOSINOPHILS # (AUTO) 0.2 X10'3 (0-0.9); EOSINOPHILS % (AUTO) 2.7 % (0-6); HEMATOCRIT 34.5 % (35.0-45.0); HEMOGLOBIN 11.5 g/dl (12.0-16.0); LYMPHOCYTES # (AUTO) 1.5 X10'3 (1.1-4.8); LYMPHOCYTES % (AUTO) 16.8 % (21-51); MEAN CORPUSCULAR HEMOGLOBIN 29.2 PG (27.0-31.0); MEAN CORPUSCULAR HGB CONC 33.3 g/dL (33.0-36.5); MEAN CORPUSCULAR VOLUME 87.9 FL (78-98); MEAN PLATELET VOLUME 7.2 FL (7.4-10.4); MONOCYTES # (AUTO) 0.8 X10'3 (0-0.9); NEUTROPHILS # (AUTO) 6.2 X10'3 (1.8-7.7); NEUTROPHILS % (AUTO) 70.9 % (42-75); PLATELET COUNT 196 X10'3 (140-440); RED BLOOD COUNT 3.93 X10'6 (4.20-5.60); RED CELL DISTRIBUTION WIDTH 17.7 % (11.5-14.5); WHITE BLOOD COUNT 8.7 X10'3 (4.5-11.0)
[2025-03-22 14:45] LABS: ALANINE AMINOTRANSFERASE 19 U/L (12-78); ALBUMIN 2.4 G/DL (3.4-5.0); ALBUMIN/GLOBULIN RATIO 0.6 (1.1-1.5); ALKALINE PHOSPHATASE 111 IU/L (46-116); ANION GAP 7 (8-16); ASPARTATE AMINO TRANSFERASE 21 U/L (10-37); BILIRUBIN,TOTAL 0.2 MG/DL (0.1-1.0); BLOOD UREA NITROGEN 15 MG/DL (7-18); BUN/CREATININE RATIO 6.9 (10.0-20.0); CALCIUM 8.9 MG/DL (8.5-10.1); CHLORIDE 102 MMOL/L (99-107); CREATININE 2.16 MG/DL (0.40-0.90); GLUCOSE 132 MG/DL (70-104); POTASSIUM 3.6 MMOL/L (3.5-5.1); SODIUM 136 MMOL/L (135-145); TOTAL CARBON DIOXIDE 26.6 MMOL/L (24-32); TOTAL PROTEIN 6.7 G/DL (6.4-8.2); eCRCL 16 ML/MIN; eGFR 22 ML/MIN
[2025-03-22 14:46] LABS: CHOLESTEROL 107 MG/DL (0-200); HDL CHOLESTEROL 27 MG/DL (35-60); LDL CHOLESTEROL 62 MG/DL (50-100); MAGNESIUM 1.7 MG/DL (1.5-2.4); TRIGLYCERIDES 131 MG/DL (20-135)
--- NOTE | 2025-03-22 16:14 | PROGRESS NOTE- Residence ---
Progress Note - Resident Providers to CC Resident Creating Document: OTONIEL JOSEPH RES CC: SARAI WASHBURN MD ~ Antibiotic Timeout Antibiotic Ordered?: Yes Subjective Patient was examined at bedside this morning. Patient seems to be alert, but looks irritated. Patient did not have any complaints or acute overnight events. Patient had three episodes of systolic blood pressure above 180, requiring IV labetalol. Therefore patient has been transferred to PCU. Objective Vital Signs Date Time Temp Pulse Resp B/P (MAP) Pulse Ox O2 Delivery O2 Flow Rate FiO2 03/22/25 15:43 150/75 (100) 95 03/22/25 10:00 97.6 93 14 Room Air 03/20/25 17:13 0 Result Diagram: 03/22/25 1418 03/22/25 1418 General: Elderly female, Alert, awake, mildly confused HEENT: PERRLA, no icterus, pallor, lymphadenopathy, carotid bruit Respiratory system: Bilateral vesicular breath sounds heard, no adventitious breath sounds CVS: S1-S2 heard, no murmurs/rubs/gallop GI: Soft, nontender, no organomegaly, no guarding/rigidity, bowel sounds present Neuro: Decreased sensation on left side of the face, able to follow commands, drooping of the mouth on the left side, left upper and lower extremities power: 3 /5, unable to test gait Extremities: No edema cyanosis clubbing/deformities Skin: Warm and dry Coagulation Studies Laboratory Tests Test 03/20/25 12:31 Prothrombin Time 10.6 SECONDS (9.0-12.0) INR International Normalized Ratio 1.0 INR Activated Partial Thromboplast Time 24 SECONDS (22-32) Coagulation Comments Assessment Assessment Patient is a 74-year-old female with history of type 2 diabetes, recent CVA, hypertension, hyperlipidemia, GERD, CAD and PAD who was brought to the ED due to slurred speech and left-sided weakness. Admitted for evaluation and management of CVA. Plan Plan Acute stroke, right MCA territorial infarct History of ischemic stroke in 2014, 2017 and 01/2025 History of brain aneurysm, s/p coiling History of carotid artery stenosis s/p carotid endarterectomy in 2018 Right external carotid artery occlusion Echo: EF: 45-50%, RVSP: 41 mmHg, Blood Pressure Management: IV labetalol 10 mg Target Blood Pressure: SBP < 180, SBP > 140 Follow up with lipid panel and MRI brain without contrast (MRI compatible with a aneurysmal coils as per records from [facility]) Continue Plavix 75 mg daily x 21 days + asa 81mg x 21 days, followed by monotherapy thereafter. If PO not available- [place] ASA 325 mg once Continue minced/moist nectar thick diet with no straws as per WEATHER CLERK recommendations Heart failure with reduced ejection fraction, not in acute exacerbation Hypertension Hyperlipidemia CAD s/p PCI PAD s/p femoral stent Goal BP as above We will hold metoprolol and losartan for now Continue rosuvastatin Rest as above Echo report as above UTI Urinalysis: Urine nitrite positive, leukocyte esterase: Moderate, WBC: 32 50 Initially started on trimethoprim but switched to nitrofurantoin Follow up with urine cultures, we will stop antibiotics if cultures are negative GERD Continue Prilosec Type 2 diabetes Last A1c 6.4 Switched to Lantus 10 units as patient has had episodes of low blood glucose overnight, lispro 2 units, low-dose supplemental Hold home Ozempic Code Status: DNR DVT prophylaxis: SCDs Nutrition: minced/moist nectar thick diet with no straws Prognosis: Guarded Disposition: Continue care in ortho/neuro. Continue medical management, continue to monitor vitals Otoniel Joseph MD Internal Medicine, PGY 1 Date of Service: March 22, 2025 Billing Provider: SARAI WASHBURN MD Common Visit Codes: [id number] INP/OBS CARE(HIGH) OTONIEL JOSEPH, RES March 22, 2025 16:14 SARAI WASHBURN MD March 25, 2025 17:20
[2025-03-22] MEDS: nitrofuran monohydrate/nitrofuran macrocrysal 100 MG (MacroBID) capsule PO SCH (17:47)
[2025-03-23 06:00] VITALS: BP 168/70; PULSE 86; RESP 14; TEMP 96.2; O2SAT 97
[2025-03-23 06:14] LABS: BASOPHILS % (AUTO) 0.7 % (0-1); EOSINOPHILS # (AUTO) 0.2 X10'3 (0-0.9); EOSINOPHILS % (AUTO) 3.9 % (0-6); HEMOGLOBIN 10.9 g/dl (12.0-16.0); LYMPHOCYTES # (AUTO) 1.5 X10'3 (1.1-4.8); LYMPHOCYTES % (AUTO) 24.7 % (21-51); MEAN CORPUSCULAR VOLUME 87.8 FL (78-98); MEAN PLATELET VOLUME 7.3 FL (7.4-10.4); MONOCYTES # (AUTO) 0.6 X10'3 (0-0.9); MONOCYTES % (AUTO) 10.4 % (2-12); NEUTROPHILS # (AUTO) 3.7 X10'3 (1.8-7.7); NEUTROPHILS % (AUTO) 60.3 % (42-75); PLATELET COUNT 193 X10'3 (140-440); RED BLOOD COUNT 3.76 X10'6 (4.20-5.60); RED CELL DISTRIBUTION WIDTH 17.5 % (11.5-14.5); WHITE BLOOD COUNT 6.2 X10'3 (4.5-11.0)
[2025-03-23 06:33] LABS: ALANINE AMINOTRANSFERASE 22 U/L (12-78); ALBUMIN 2.3 G/DL (3.4-5.0); ALBUMIN/GLOBULIN RATIO 0.6 (1.1-1.5); ALKALINE PHOSPHATASE 105 IU/L (46-116); ANION GAP 7 (8-16); ASPARTATE AMINO TRANSFERASE 20 U/L (10-37); BILIRUBIN,TOTAL 0.3 MG/DL (0.1-1.0); BLOOD UREA NITROGEN 13 MG/DL (7-18); BUN/CREATININE RATIO 5.9 (10.0-20.0); CALCIUM 9.1 MG/DL (8.5-10.1); CHLORIDE 107 MMOL/L (99-107); GLUCOSE 115 MG/DL (70-104); MAGNESIUM 1.7 MG/DL (1.5-2.4); POTASSIUM 3.6 MMOL/L (3.5-5.1); SODIUM 139 MMOL/L (135-145); TOTAL CARBON DIOXIDE 24.9 MMOL/L (24-32); TOTAL PROTEIN 6.4 G/DL (6.4-8.2); eCRCL 16 ML/MIN; eGFR 22 ML/MIN
[2025-03-23 10:00] VITALS: BP 156/83; PULSE 83; RESP 17; TEMP 97.6; O2SAT 95
--- NOTE | 2025-03-23 15:59 | RADIOLOGY REPORT ---
CT brain without contrast CLINICAL INDICATION: tyler Comparison: 03/20/2025 FINDINGS: The study was performed in a multidetector scanner. This study performed taking axial image s from the skull base up to the vertex. Both brain and bone windows are photographed. Dose lowering techniques have been used including automated exposure control and adjustment of mA and /or KV according to patient size. There is a large area of edema in the right temporal occipital and parietal lobes. No intraparenchym al hemorrhage. There are symmetric low-density changes in the periventricular white matter. Old area of encephalomalacia in the left frontal lobe. There is mild dilatation of the lateral and 3rd ventricles relative to the 4th ventricle. There is an aneurysm clip present in the left suprasellar cistern IMPRESSION: 1. Compared to previous recent exam increasingly well-defined edema in the right temporal occipital a nd parietal lobes probably due to ischemic infarct in the M2 branches of right middle cerebral artery distribution. No hemorrhagic transformation of the stroke compared to previous exam 2. Old left frontal and right posterior parietal infarcts 3. Chronic ischemic periventricular white matter disease Computed Tomographic Radiation Dosimetry Report: Total CTDI vol = 52 mGy Total DLP = 888 mGy-cm All C T scans at this medical facility are performed using dose modulation techniques as appropriate to a p erformed exam including the following: Automated exposure control was utilized; adjustment of the MA and/or KvP according to patient size; and use of iterative reconstruction technique.
--- NOTE | 2025-03-23 17:46 | PROGRESS NOTE- Residence ---
Progress Note - Resident Providers to CC Resident Creating Document: OTONIEL JOSEPH RES CC: SARAI WASHBURN MD ~ Antibiotic Timeout Antibiotic Ordered?: Yes Subjective Patient was examined at bedside this morning. Patient seems to be alert but oriented to time and place but not to person. We tried to get MRI for this patient, as she has coiling done in the past, contacting with the patient's daughter who could not get card containing information about the manufacture of the coiling, nanotechnology engineering technologist at the hospital could not proceed with imaging. Therefore repeat CT head was done. Objective Vital Signs Date Time Temp Pulse Resp B/P (MAP) Pulse Ox O2 Delivery O2 Flow Rate FiO2 03/23/25 10:00 97.6 83 17 156/83 (107) 95 Room Air 03/23/25 08:00 0.0 Result Diagram: 03/23/2546 03/23/25545 General: Elderly female, Alert, awake, mildly confused HEENT: PERRLA, no icterus, pallor, lymphadenopathy, carotid bruit Respiratory system: Bilateral vesicular breath sounds heard, no adventitious breath sounds CVS: S1-S2 heard, no murmurs/rubs/gallop GI: Soft, nontender, no organomegaly, no guarding/rigidity, bowel sounds present Neuro: Loss of sensation on the left side of the face, able to follow commands, drooping of the mouth on the left side, left upper and lower extremities power: 3 /5, unable to test gait Extremities: No edema cyanosis clubbing/deformities Skin: Warm and dry Coagulation Studies Laboratory Tests Test 03/20/25 12:31 Prothrombin Time 10.6 SECONDS (9.0-12.0) INR International Normalized Ratio 1.0 INR Activated Partial Thromboplast Time 24 SECONDS (22-32) Coagulation Comments Assessment Assessment Patient is a 74-year-old female with history of type 2 diabetes, recent CVA, hypertension, hyperlipidemia, GERD, CAD and PAD who was brought to the ED due to slurred speech and left-sided weakness. Admitted for evaluation and management of CVA. Plan Plan Acute stroke, right MCA territorial infarct History of ischemic stroke in 2014, 2017 and 01/2025 History of brain aneurysm, s/p coiling History of carotid artery stenosis s/p carotid endarterectomy in 2018 Right external carotid artery occlusion Repeat CT head: Compared to previous recent exam increasingly well-defined edema in the right temporal occipital and parietal lobes probably due to ischemic infarct in the M2 branches of right middle cerebral artery distribution. No hemorrhagic transformation of the stroke compared to previous exam Discussed the above findings with the neurologist, advised outpatient follow up with neurosurgeon and outpatient MRI. Patient is cleared for discharge as the patient is back to her baseline despite new findings on the CT head. Echo: EF: 45-50%, RVSP: 41 mmHg, Blood Pressure Management: IV labetalol 10 mg p.r.n. Blood pressure management with losartan LDL goal less than 70 (current LDL of the patient: 62): Continue atorvastatin 80 mg Continue Plavix 75 mg daily x 21 days + asa 81mg x 21 days, followed by monotherapy thereafter. If PO not available- [place] ASA 325 mg once Continue minced/moist nectar thick diet with no straws as per [employer] recommendations Heart failure with reduced ejection fraction, not in acute exacerbation Hypertension Hyperlipidemia CAD s/p PCI PAD s/p femoral stent Goal BP as above Resume losartan and metoprolol Rest as above Echo report as above UTI Urinalysis: Urine nitrite positive, leukocyte esterase: Moderate, WBC: 32 50 Continue nitrofurantoin Urine cultures positive for Gram-negative rods CKD stage IIIB Baseline creatinine: 1.34, EGFR: 22 Continue to monitor BMP GERD Continue Prilosec Type 2 diabetes Last A1c 6.4 Switched to Lantus 10 units as patient has had episodes of low blood glucose overnight, lispro 2 units, low-dose supplemental Hold home Ozempic Code Status: DNR DVT prophylaxis: SCDs Nutrition: minced/moist nectar thick diet with no straws Prognosis: Guarded Disposition: Continue care in ortho/neuro. We will be discharged to [facility] tomorrow Otoniel Joseph MD Internal Medicine, PGY 1 Date of Service: March 23, 2025 Billing Provider: SARAI WASHBURN MD Common Visit Codes: [id number] INP/OBS CARE(HIGH) OTONIEL JOSEPH, RES March 23, 2025 17:46 SARAI WASHBURN MD March 25, 2025 17:20
[2025-03-23 18:00] VITALS: BP 156/89; PULSE 86; RESP 17; TEMP 97.3; O2SAT 99
[2025-03-23 22:00] VITALS: BP 174/78; PULSE 91; RESP 18; TEMP 97.8; O2SAT 96
[2025-03-24 02:00] VITALS: BP 201/77; PULSE 74; RESP 16; TEMP 97.5; O2SAT 95
[2025-03-24] MEDS: hydrALAZINE 20mg/ml inj. IV PRN (02:11)
[2025-03-24 02:38] VITALS: BP 177/83; PULSE 89
[2025-03-24 04:45] LABS: BASOPHILS # (AUTO) 0.1 X10'3 (0-0.2); BASOPHILS % (AUTO) 0.7 % (0-1); EOSINOPHILS # (AUTO) 0.4 X10'3 (0-0.9); EOSINOPHILS % (AUTO) 4.4 % (0-6); HEMATOCRIT 35.2 % (35.0-45.0); HEMOGLOBIN 11.8 g/dl (12.0-16.0); LYMPHOCYTES # (AUTO) 1.6 X10'3 (1.1-4.8); LYMPHOCYTES % (AUTO) 19.5 % (21-51); MEAN CORPUSCULAR HEMOGLOBIN 29.2 PG (27.0-31.0); MEAN CORPUSCULAR HGB CONC 33.6 g/dL (33.0-36.5); MEAN CORPUSCULAR VOLUME 86.9 FL (78-98); MEAN PLATELET VOLUME 7.2 FL (7.4-10.4); MONOCYTES # (AUTO) 0.6 X10'3 (0-0.9); NEUTROPHILS # (AUTO) 5.4 X10'3 (1.8-7.7); NEUTROPHILS % (AUTO) 67.4 % (42-75); PLATELET COUNT 219 X10'3 (140-440); RED BLOOD COUNT 4.05 X10'6 (4.20-5.60); RED CELL DISTRIBUTION WIDTH 17.5 % (11.5-14.5)
[2025-03-24 05:10] LABS: ALANINE AMINOTRANSFERASE 22 U/L (12-78); ALBUMIN 2.6 G/DL (3.4-5.0); ALBUMIN/GLOBULIN RATIO 0.6 (1.1-1.5); ALKALINE PHOSPHATASE 120 IU/L (46-116); ANION GAP 10 (8-16); ASPARTATE AMINO TRANSFERASE 21 U/L (10-37); BILIRUBIN,TOTAL 0.4 MG/DL (0.1-1.0); BLOOD UREA NITROGEN 12 MG/DL (7-18); BUN/CREATININE RATIO 5.2 (10.0-20.0); CALCIUM 9.8 MG/DL (8.5-10.1); CHLORIDE 103 MMOL/L (99-107); GLUCOSE 140 MG/DL (70-104); MAGNESIUM 1.7 MG/DL (1.5-2.4); POTASSIUM 3.7 MMOL/L (3.5-5.1); SODIUM 137 MMOL/L (135-145); TOTAL CARBON DIOXIDE 23.6 MMOL/L (24-32); eCRCL 15 ML/MIN; eGFR 21 ML/MIN
[2025-03-24 06:00] VITALS: BP 184/89; PULSE 112; RESP 15; TEMP 96.3; O2SAT 96
[2025-03-24] MEDS: metoprolol succinate 25mg (24-HOUR) SR. Tablet PO SCH (07:27)
[2025-03-24 07:28] VITALS: BP_SYST 184; PULSE 112
[2025-03-24] MEDS: losartan 50mg tablet PO SCH (07:28)
[2025-03-24] MEDS: normal saline 1000ml 1,000 ML IV ONE (10:30)
--- NOTE | 2025-03-24 18:19 | DISCHARGE SUMMARY-Residence ---
Discharge Summary Providers to CC Resident Creating Document: OTONIEL JOSEPH, RES CC: SARAI WASHBURN MD ~ Discharge Summary Assessment Patient is a 74-year-old female with history of type 2 diabetes, recent CVA, hypertension, hyperlipidemia, GERD, CAD and PAD who was brought to the ED due to slurred speech and left-sided weakness. Admitted for evaluation and management of CVA. Admission Diagnosis: Stroke alert Hospital Course DATE OF ADMISSION: 03/20/25 DATE OF DISCHARGE: 03/24/25 Discharge Diagnosis\Comment: Acute right MCA territorial infarct History of ischemic stroke in 2014, 2017 and January 2025 History of brain aneurysm status post coiling History of carotid artery disease status post carotid endarterectomy in 2018 Right external carotid artery occlusion Heart failure with reduced ejection fraction not in acute exacerbation Hypertension hyperlipidemia CAD status post PCI PID status post femoral stent UTI CKD stage IIIB GERD Type 2 DM Operations\Procedures: None Consultants: Neurologist Complications: None Condition on DC: Stable for transfer Discharge Summary: A 74-year-old female with a history of type 2 DM, recent CVA and multiple medical morbidities presented to the ED with slurred speech and left-sided weakness. On further evaluation patient is CT head revealed right middle cerebral artery distribution ischemic infarct. Tele neurologist who was immediately consulted. Was evaluated the thrombolysis could be done, but was contraindicated. Patient was started on all optimal measures four CVA. Neuro q.4h checks, fall precautions, aspiration precautions, swallow evaluation, as pirin and Plavix started, full dose of aspirin received initially, echo and MRI were ordered. Patient was also started on atorvastatin with LDL goal less than 70. Patient was prescribed med/moist nectar thick diet. Permissive hypertension was maintained for 48 hours which was managed with IV labetalol. Patient continued to have very high blood pressures above 180s that required IV labetalol and transferred to PCU floor. On further evaluation patient was found to have urinalysis positive for UTI and cultures positive for Gram-negative rods requiring antibiotic course. Patient's other medical conditions like heart failure with reduced ejection fraction, hypertension, CAD status post PCI and PID status post femoral stent were managed as per home medications. Patient was diagnosed to have CKD stage IIIB with a baseline creatinine 1.34 mg GFR in 22, therefore BMP was continuously monitored. Repeat MRI could not be done as the patient did not have health card information about the coils indicating compatibility. Patient's daughter was continuously consulted with the consciousness information. Nevertheless repeat CT head showed the similar findings as patient is back to her baseline, patient is being discharged to a rehab with recommendations to consult with neurosurgeon and a repeat MRI as outpatient. Physical examination at discharge: General: Elderly female, Alert, awake, mildly confused HEENT: PERRLA, no icterus, pallor, lymphadenopathy, carotid bruit Respiratory system: Bilateral vesicular breath sounds heard, no adventitious breath sounds CVS: S1-S2 heard, no murmurs/rubs/gallop GI: Soft, nontender, no organomegaly, no guarding/rigidity, bowel sounds present Neuro: Loss of sensation on the left side of the face, able to follow commands, drooping of the mouth on the left side, left upper and lower extremities power: 3 /5, unable to test gait Extremities: No edema cyanosis clubbing/deformities Skin: Warm and dry Labs at discharge: WBC: 8, H/H: 11/35.2, platelet count: 219 Sodium: 137, potassium: 3.7, BUN: 12, creatinine: 2.30 Imaging: Chest x-ray:No acute intrathoracic process. Head CT: Acute appearing right MCA territorial infarct. No midline shift or intracranial hemorrhage. Old bilateral infarcts and extensive chronic microvascular ischemic changes. A left paramedian suprasellar aneurysm clip noted. Head/neck CTA: Advanced atherosclerotic disease. 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 Bilateral internal carotid arteries are patent without hemodynamically significant stenosis. [id number] stenosis of the mid left common carotid artery. Diminutive bilateral vertebral arteries. Paucity of right M2 branches suggests occlusion. Consider further evaluation with MRA of the brain. 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 No definite flow in the aneurysm sac. Vertebrobasilar system is diminutive with multifocal stenoses. Smoking-related lung disease. Diffuse hypodensity in both cerebral hemispheres in the right cerebellum likely related to old infarcts. Acute infarct is not excluded. Recommend further evaluation with MRI of the brain. Echo: Overall systolic function is mildly reduced. Overall LVEF is 45-50%. RV is grossly normal size and function. Estimated PA systolic pressure is 41 mmHg. Repeat HCT: Compared to previous recent exam increasingly well-defined edema in the right temporal occipital and parietal lobes probably due to ischemic infarct in the M2 branches of right middle cerebral artery distribution. No hemorrhagic transformation of the stroke compared to previous exam Discharge medications and recommendations have been faxed to the facility. *Problems/Diagnosis: (1) CKD (chronic kidney disease) Status: Acute (2) History of CVA (cerebrovascular accident) Status: Acute (3) UTI (urinary tract infection) Status: Acute (4) Cerebrovascular accident Status: Acute Total Time Spent on D/C: > 30 Minutes Date of Service: March 24, 2025 Billing Provider: SARAI WASHBURN MD Common Visit Codes: [id number]-[id number]/OBS DISCH DAY >30min OTONIEL JOSEPH, RES March 24, 2025 18:07 SARAI WASHBURN MD March 25, 2025 17:21
== END 2025-03-24 14:30 | DRG 65 ==
LOC: ER 12:11 → ED HOLD 13:59 → ORTHO 4S 17:25
PROVIDERS: ADMIT Family Medicine; ATTEND Family Medicine
PROC: B3251ZZ Computerized Tomography (CT Scan) of Bilateral Common Carotid Arteries using Low Osmolar Contrast (ICD-10-PCS; principal; 2025-03-20)
PROC: B32G1ZZ Computerized Tomography (CT Scan) of Bilateral Vertebral Arteries using Low Osmolar Contrast (ICD-10-PCS; 2025-03-20)
PROC: B32R1ZZ Computerized Tomography (CT Scan) of Intracranial Arteries using Low Osmolar Contrast (ICD-10-PCS; 2025-03-20)
PROC: B3281ZZ Computerized Tomography (CT Scan) of Bilateral Internal Carotid Arteries using Low Osmolar Contrast (ICD-10-PCS; 2025-03-20)
PROC: 05HF33Z Insertion of Infusion Device into Left Cephalic Vein, Percutaneous Approach (ICD-10-PCS; 2025-03-20)
PROC: B54NZZA Ultrasonography of Left Upper Extremity Veins, Guidance (ICD-10-PCS; 2025-03-20)
DX: I63.511 Cerebral infarction due to unspecified occlusion or stenosis of right middle cerebral artery (principal); I13.0 Hypertensive heart and chronic kidney disease with heart failure and stage 1 through stage 4 chronic kidney disease, or unspecified chronic kidney disease; I50.20 Unspecified systolic (congestive) heart failure; N39.0 Urinary tract infection, site not specified; E78.00 Pure hypercholesterolemia, unspecified; R29.712 NIHSS score 12; K21.9 Gastro-esophageal reflux disease without esophagitis; N18.32 Chronic kidney disease, stage 3b; E11.22 Type 2 diabetes mellitus with diabetic chronic kidney disease; J44.9 Chronic obstructive pulmonary disease, unspecified; E11.51 Type 2 diabetes mellitus with diabetic peripheral angiopathy without gangrene; Z88.1 Allergy status to other antibiotic agents; Z79.82 Long term (current) use of aspirin; Z79.4 Long term (current) use of insulin; Z79.84 Long term (current) use of oral hypoglycemic drugs; Z79.899 Other long term (current) drug therapy; Z87.891 Personal history of nicotine dependence
CPT/HCPCS: 36410; 36415; 70450; 70496; 70498; 71045; 76937; 80048; 80053; 80061; 81001; 82948; 83036; 83735; 84145; 85025; 85610; 85730; 87077; 87081; 87088; 87186; 92508; 92616; 93005; 93306; 96361; 97110; 97116; 97162; 97530; 99291; A6250; C1751; G0378; J0360; J3490; J7030; J7060; Q9967

== ENCOUNTER 2025-03-27 14:05 | Emergency (ER) | payer MEDICARE, MEDICAID ==
[~2025-03-27] VITALS: Ht 154.9 cm; Wt 72.7 kg
[~2025-03-27 14:05] MED LIST changes: +ROSU40TA89 PO; +SEMA0.258
--- NOTE | 2025-03-27 15:01 | RADIOLOGY REPORT ---
CLINICAL INFORMATION: 74 years old, Female; head and neck pain. TECHNIQUE: Axial imaging was obtained through the brain without contrast. Coronal and sagittal reform atted images were obtained, reviewed, and stored. Images were reviewed in brain and bone windows. Al l CT scans at this medical facility are performed using dose modulation techniques as appropriate to a performed exam including the following: Automated exposure control was utilized; adjustment of the MA and/or KV according to patient size; and use of iterative reconstruction technique. CTDIvol = 65.1 1 mGy DLP = 1192.91 mGy-cm COMPARISON: CT CT HEAD on DOS: 03/23/25, CT CT STROKE ALERT on DOS: 03/20/25, CT STROKE ALERT on DOS: FINDINGS: There is no acute intracranial hemorrhage. No mass effect or midline shift. There are evolv ing changes in the right cerebral hemisphere from the recent infarct, superimposed on chronic ischemi c changes in the right cerebral hemisphere. Stable appearing chronic ischemic changes in the left cer ebral hemisphere. Aneurysm coil material in the anterior parasellar region, unchanged. The ventricles and sulci are stable in size. Basal cisterns are patent. The calvarium is unremarkable. Paranasal s inuses and mastoid air cells are clear. IMPRESSION: 1. No acute intracranial hemorrhage. 2. Evolving changes associated with the recent infarct in the right cerebral hemisphere superimposed on chronic ischemic changes. 3. Stable appearing chronic ischemic changes in the left cerebral hemisphere. 4. Additional findings as described above.
--- NOTE | 2025-03-27 15:10 | RADIOLOGY REPORT ---
EXAM: CT CT CERVICAL SPINE INDICATION: head and neck pain EXAM DATE: 03/27/2025 02:37 PM COMPARISON: None TECHNIQUE: Multiple axial CT images of the cervical spine were obtained using bone algorithm. Axial a nd coronal reformatting was done. Bone and soft tissue windows were reviewed. Radiation Dose Information: CT Dose: CTDI volume is 21.55 mGy. Dose-length product is 347.09 mGy*cm FINDINGS: The cervical alignment is intact. No acute cervical spine fracture is identified. The vertebral body heights are intact. No suspicious osseous lesions are identified. Is fusion of C5-C6 with prominent osteophytes seen posteriorly measuring 7 mm which is causing modera te to severe spinal canal stenosis most pronounced on the right as compared to the left. There is no prevertebral soft tissue swelling. Atherosclerotic change in both carotid artery with radha cified plaque. IMPRESSION: 1. No evidence of acute cervical spine fracture or traumatic malalignment. 2. C5-C6 fusion with posterior osteophyte measuring 6.66 cm which is causing severe right paracentral stenosis. 3. Both carotid arteries has calcification atherosclerotic changes. I would recommend carotid doppler . All CT scans at this medical facility are performed using dose modulation techniques as appropriate t o a performed exam including the following: Automated exposure control was utilized; adjustment of th e MA and/or KV according to patient size; and use of iterative reconstruction technique.
--- NOTE | 2025-03-27 15:28 | Physician Documentation ---
History of Present Illness ~ Chief Complaint: Mechanical Fall Stated Complaint: HEAD STRIKE Time Seen by MD: 14:21 OK to notify your PCP?: Yes Primary Medical Doctor: Dr Kem anderson [facility] in [place] Source: patient Mode of Arrival: EMS Exam Limitations: clinical condition (nonverbal due to h/o large stroke a ffecting language) HPI 79-year-old female who was brought in by EMS due to a fall. Patient is on blood thinners. Paramedics notes state no head strike but state complaint above states head strike which is unclear. Patient unable to provide history due to h/o large ischemic stroke. Patient is DNR. Skin tear left forearm. Tetanus within 5 Years?: No Medication Reconciliation Allergies: Coded Allergies: tetracycline (Verified Allergy, Intermediate, 12/06/24) ceftriaxone (Verified Allergy, Unknown, 12/06/24) ciprofloxacin (Verified Allergy, Unknown, 12/06/24) levofloxacin (Verified Allergy, Unknown, 03/20/25) Uncoded Allergies: UNKNOWN ANTIBIOTIC (Allergy, Intermediate, DOESN'T REMEMBER NAME OF ABX, BUT IT MADE HER WEAK, 05/31/21) Scheduled Aspirin (Aspirin EC), 1 TAB PO DAILY, (Reported) Atorvastatin Calcium (Atorvastatin Calcium), 1 TAB PO HS, (Reported) Insulin Glargine,Hum.rec.anlog (Basaglar Kwikpen U-100), 14 UNITS SQ HS, (Reported) Losartan Potassium (Losartan Potassium), 1 TAB PO DAILY, (Reported) Metformin HCl (Metformin HCl), 1 TAB PO BID, (Reported) Metoprolol Succinate (Metoprolol Succinate), 1 TAB PO DAILY, (Reported) Omeprazole Magnesium (Prilosec Otc), 1 TAB PO DAILY, (Reported) Rosuvastatin Calcium (Rosuvastatin Calcium), 1 TAB PO DAILY, (Reported) Miscellaneous Medications Semaglutide (Ozempic), (Reported) Past Medical History Past Medical History: CVA/TIA/Stroke, High Cholesterol, Hypertension, COPD, Diabetes Past Surgical History: noncontributory Patient History: FH: myocardial infarction FATHER (NONE), Alcohol Use: None Drug Use: none Lives with: Family Lives In: Home Review of Systems ROS patient unable to provide ROS due to being considered nonverbal. Physical Exam Vital Signs: Temperature: 98.3, Source: Oral, Heart Rate: 81, Respiratory Rate: 18, BP: 140/76, Pulse Oximetry: 96, Weight: 72.730 Physical Exam GENERAL: Alert, no acute distress. IN CERVICAL COLLAR. HEENT: NCAT, EOMI, PERRL, normal oropharynx, moist oral mucosa. NECK: Supple, trachea midline. CARDIAC: Regular rate and rhythm, no murmurs, rubs, or gallops. Equal distal pulses. No lower extremity edema, cap refill less than 2 seconds. RESPIRATORY: Equal breath sounds, clear to auscultation bilaterally, no respiratory distress. GASTROINTESTINAL: Non distended, soft, nontender, No guarding or rebound. MUSCULOSKELETAL: Normal range of motion, nontender, no swelling. Normal gait. NEUROLOGICAL: Awake, alert, and oriented to person and place. SKIN: Warm/dry, no pallor, no rash. SKIN TEAR LEFT FOREARM MEASURING ABOUT 4X3CM AND 3X3CM, NO SURROUNDING EDEMA, VISIBLE DERMIS, NO BLEEDING. PSYCH: Alert and appropriate. Progress Progress Note EXAM: CT CT CERVICAL SPINE INDICATION: head and neck pain EXAM DATE: 03/27/2025 02:37 PM COMPARISON: None TECHNIQUE: Multiple axial CT images of the cervical spine were obtained using bone algorithm. Axial and coronal reformatting was done. Bone and soft tissue windows were reviewed. Radiation Dose Information: CT Dose: CTDI volume is 21.55 mGy. Dose-length product is 347.09 mGy*cm FINDINGS: The cervical alignment is intact. No acute cervical spine fracture is identified. The vertebral body heights are intact. No suspicious osseous lesions are identified. Is fusion of C5-C6 with prominent osteophytes seen posteriorly measuring 7 mm which is causing moderate to severe spinal canal stenosis most pronounced on the right as compared to the left. There is no prevertebral soft tissue swelling. Atherosclerotic change in both carotid artery with calcified plaque. IMPRESSION: 1. No evidence of acute cervical spine fracture or traumatic malalignment. 2. C5-C6 fusion with posterior osteophyte measuring 6.66 cm which is causing severe right paracentral stenosis. 3. Both carotid arteries has calcification atherosclerotic changes. I would recommend carotid doppler. All CT scans at this medical facility are performed using dose modulation techniques as appropriate to a performed exam including the following: Automated exposure control was utilized; adjustment of the MA and/or KV according to patient size; and use of iterative reconstruction technique. Electronically Signed by: RICKIE ROQUE at Patient: ROSA ELENA SALGADO Medical Record: [id number] MEDICAL [facility] : 1950, Age: 74 Sex: Female Location: ER Patient Status: [facility] ER Service Date/Time: 03/27/251437 Ordering Physician: CALVIN MICHELLE Exam: CT HEAD CLINICAL INFORMATION: 74 years old, Female; head and neck pain. TECHNIQUE: Axial imaging was obtained through the brain without contrast. Coronal and sagittal reformatted images were obtained, reviewed, and stored. Images were reviewed in brain and bone windows. All CT scans at this medical facility are performed using dose modulation techniques as appropriate to a performed exam including the following: Automated exposure control was utilized; adjustment of the MA and/or KV according to patient size; and use of iterative reconstruction technique. CTDIvol = 65.11 mGy DLP = 1192.91 mGy-cm COMPARISON: CT CT HEAD on DOS: 03/23/25, CT CT STROKE ALERT on DOS: 03/20/25, CT STROKE ALERT on DOS: 02/22/22 FINDINGS: There is no acute intracranial hemorrhage. No mass effect or midline shift. There are evolving changes in the right cerebral hemisphere from the recent infarct, superimposed on chronic ischemic changes in the right cerebral hemisphere. Stable appearing chronic ischemic changes in the left cerebral hemisphere. Aneurysm coil material in the anterior parasellar region, unchanged. The ventricles and sulci are stable in size. Basal cisterns are patent. The calvarium is unremarkable. Paranasal sinuses and mastoid air cells are clear. IMPRESSION: 1. No acute intracranial hemorrhage. 2. Evolving changes associated with the recent infarct in the right cerebral hemisphere superimposed on chronic ischemic changes. 3. Stable appearing chronic ischemic changes in the left cerebral hemisphere. 4. Additional findings as described above. Results/Orders Results/Orders Orders - CALVIN MICHELLE Ct Cervical Spine (03/27/25 14:39) Ct Head (03/27/25 14:38) Completed Orders - CALVIN MICHELLE Ct Cervical Spine (03/27/25 14:39) Ct Head (03/27/25 14:38) Vital Signs 03/27/25 03/27/25 03/27/25 03/27/25 14:10 16:11 16:12 18:11 Temp 98.3 98.3 Pulse 81 85 81 Resp 18 17 17 18 B/P (MAP) 140/76 137/61 (86) 135/67 Pulse Ox 96 98 100 O2 Flow Rate 0 Medical Decision Making Differential Dx:Considerations: Include: Closed head injury, Cardiac injury, Fracture(s), Intraabdominal injury, Pneumothorax, Cerebral contusion, Pulmonary contusion, Spine injury, Tracheal injury, Urological injury, Vascular injury, Abrasion(s), Contusion(s), Foreign body(s), Hematoma(s), Laceration(s), Encephalopathy Departure Time of Disposition: 15:27 Disposition: HOME / SELF CARE / HOMELESS Impression: Primary Impression: Fall Qualified Codes: W19.XXXA - Unspecified fall, initial encounter Additional Impressions: Chronic anticoagulation Skin tear Condition: Stable Discharge Instructions: Skin Tear, [id number] Additional Instructions: DO NOT GET LEFT FOREARM WET X 72HOURS THEN WOUND CARE TO DRESS AND MONITOR SKIN TEAR REPAIRED WITH STERILE SALINE AND DERMABOND CT OF HEAD AND NECK PERFORMED DID NOT SHOW ANY ACUTE FINDINGS PATIENT DOES HAVE SEVERE STENOSIS OF CERVICAL SPINE PATIENT ALSO HAS PLAQUE IN CAROTID ARTERIES AND IT WAS MENTIONED TO HAVE F/U CAROTID ULTRASOUND UNLESS IT HAS ALREADY BEEN DONE PATIENT IS CLEARED TO RETURN TO [facility] Referrals: NO PRIMARY CARE PROVIDER (PCP) Education Educated: Patient Educated regarding: diagnosis, treatment, need for follow up Signature Scribe Signature: x Attestation: CALVIN Weiss March 27, 2025 15:27
[2025-03-27 18:11] VITALS: BP 135/67; PULSE 81; RESP 18; TEMP 98.3; O2SAT 100
== END 2025-03-27 18:14 ==
LOC: ER 14:06
DX: S51.812A Laceration without foreign body of left forearm, initial encounter (principal); R51.9 Headache, unspecified; E11.9 Type 2 diabetes mellitus without complications; E78.00 Pure hypercholesterolemia, unspecified; I10 Essential (primary) hypertension; J44.9 Chronic obstructive pulmonary disease, unspecified; Z86.73 Personal history of transient ischemic attack (TIA), and cerebral infarction without residual deficits; Z88.1 Allergy status to other antibiotic agents; W19.XXXA Unspecified fall, initial encounter; Y93.89 Activity, other specified; Y92.89 Other specified places as the place of occurrence of the external cause; Y99.8 Other external cause status
CPT/HCPCS: 12002; 70450; 72125; 99284; Z7610